=== PATIENT | male | born 1990 | race African-American/Black ===

== ENCOUNTER 2017-10-10 11:37 | Emergency (ER) | payer SELFPAY ==
[2017-10-10 12:02] LABS: BILIRUBIN,URINE NEGATIVE (NEG); CLARITY,URINE CLOUDY; COLOR,URINE AMBER; GLUCOSE,URINE NEGATIVE (NEG); NITRITE,URINE NEGATIVE (NEG); PROTEIN,URINE NEGATIVE (NEG-TRACE)
[2017-10-10 12:07] LABS: ADD MAN DIFF? NO
[2017-10-10 12:11] LABS: BASO % 1 % (0-3); EOS # 0.1 x10^3/uL (0.0-0.7); EOS % 4 % (0-3); HEMOGLOBIN 15.4 g/dL (13.0-17.5); LYMPH # 1.3 x10^3/uL (1.0-4.8); LYMPH % 38 % (24-48); MEAN CORPUSCULAR HEMOGLOBIN 30 pg (25-35); MEAN CORPUSCULAR HGB CONC 33 g/dL (31-37); MEAN CORPUSCULAR VOLUME 90 fL (79-100); MONO # 0.4 x10^3/uL (0.0-1.1); MONO % 10 % (0-9); NEUT # 1.7 x10^3uL (1.8-7.7); NEUT % 47 % (31-73); PLATELET COUNT 234 x10^3/uL (140-400); RED BLOOD COUNT 5.21 x10^6/uL (4.30-5.70); RED CELL DISTRIBUTION WIDTH 13.4 % (11.5-14.5); WHITE BLOOD COUNT 3.5 x10^3/uL (4.0-11.0)
[2017-10-10 12:14] LABS: AMORPHOUS SEDIMENT,UR PRESENT /HPF; BACTERIA,URINE 0 /HPF (0-FEW); RBC,URINE 0 /HPF (0-2); SQUAMOUS EPITHELIAL CELL,UR FEW /LPF; WBC,URINE 0 /HPF (0-4)
[2017-10-10 12:18] LABS: ANION GAP 6 (6-14); BLOOD UREA NITROGEN 6 mg/dL (8-26); BUN/CREATININE RATIO 7 (6-20); CALCIUM 9.6 mg/dL (8.5-10.1); CARBON DIOXIDE 32 mmol/L (21-32); CHLORIDE 101 mmol/L (98-107); CREATININE 0.9 mg/dL (0.7-1.3); GFR 121.6; GLUCOSE 84 mg/dL (70-99); POTASSIUM 4.1 mmol/L (3.5-5.1); SODIUM 139 mmol/L (136-145)
[2017-10-10] MEDS: KETOROLAC 30 MG/ML INJ. IV ×2 (12:21)
[2017-10-10] MEDS: ONDANSETRON PF 4 MG/2 ML VIAL. IV ×2 (12:21)
[2017-10-10 12:24] LABS: ALBUMIN 3.9 g/dL (3.4-5.0); ALBUMIN/GLOBULIN RATIO 1.1 (1.0-1.7); ALK PHOS 62 U/L (46-116); ALT (SGPT) 16 U/L (16-63); AST (SGOT) 16 U/L (15-37); TOTAL BILIRUBIN 1.3 mg/dL (0.2-1.0); TOTAL PROTEIN 7.3 g/dL (6.4-8.2)
[2017-10-10] MEDS: fentaNYL PF VIAL 100 MCG/2 ML VIAL IV ×2 (12:25)
[2017-10-10] MEDS: IV NORMAL SALINE 1000ML BAG 1,000 ML IV ×2 (12:26)
== END 2017-10-10 13:30 | disposition home or self-care (01) ==
LOC: ER 11:37
DX: R10.9 Unspecified abdominal pain (principal); R11.2 Nausea with vomiting, unspecified; F12.10 Cannabis abuse, uncomplicated
CPT/HCPCS: 36415; 74176; 80053; 81001; 85025; 96361; 96374; 96375; 99285-25; J1885; J2405; J3010; J7030

== ENCOUNTER 2018-01-09 00:22 | Emergency (ER) | payer SELFPAY ==
[2018-01-09] MEDS: IPRATRPIUM/ALBUTEROL 0.5/2.5MG 3 ML NEBU. NEB (00:45)
[2018-01-09] MEDS: predniSONE 20 MG TABLET PO (00:45)
== END 2018-01-09 01:47 | disposition home or self-care (01) ==
LOC: ER 00:22
DX: J45.41 Moderate persistent asthma with (acute) exacerbation (principal); Z87.891 Personal history of nicotine dependence
CPT/HCPCS: 94640; 99283-25; J7512; J7620

== ENCOUNTER 2018-01-25 02:10 | Inpatient (IN) | payer SELFPAY ==
[2018-01-25 02:48] LABS: ADD MAN DIFF? NO
[2018-01-25 02:53] LABS: BASO % 0 % (0-3); EOS % 0 % (0-3); HEMATOCRIT 44.1 % (39.0-53.0); HEMOGLOBIN 15.4 g/dL (13.0-17.5); LYMPH # 2.3 x10^3/uL (1.0-4.8); LYMPH % 23 % (24-48); MEAN CORPUSCULAR HEMOGLOBIN 32 pg (25-35); MEAN CORPUSCULAR HGB CONC 35 g/dL (31-37); MEAN CORPUSCULAR VOLUME 90 fL (79-100); MONO % 10 % (0-9); NEUT # 6.6 x10^3uL (1.8-7.7); NEUT % 66 % (31-73); PLATELET COUNT 229 x10^3/uL (140-400); RED BLOOD COUNT 4.88 x10^6/uL (4.30-5.70); RED CELL DISTRIBUTION WIDTH 12.6 % (11.5-14.5); WHITE BLOOD COUNT 9.9 x10^3/uL (4.0-11.0)
[2018-01-25] MEDS: LIDO:MAALOX 1:1 20 ML SINGLE DOSE. PO (02:55)
[2018-01-25 03:11] LABS: ANION GAP 9 (6-14); BLOOD UREA NITROGEN 34 mg/dL (8-26); CARBON DIOXIDE 31 mmol/L (21-32); CHLORIDE 97 mmol/L (98-107); CREATININE 1.1 mg/dL (0.7-1.3); GFR 96.4; GLUCOSE 131 mg/dL (70-99); POTASSIUM 3.3 mmol/L (3.5-5.1); SODIUM 137 mmol/L (136-145)
[2018-01-25 03:17] LABS: ALBUMIN 4.2 g/dL (3.4-5.0); ALK PHOS 56 U/L (46-116); ALT (SGPT) 33 U/L (16-63); AST (SGOT) 16 U/L (15-37); DIRECT BILIRUBIN 0.4 mg/dL (0.0-0.2); LIPASE 51 U/L (73-393); TOTAL PROTEIN 7.4 g/dL (6.4-8.2)
[2018-01-25 03:21] LABS: INR 1.2 (0.8-1.1); PARTIAL THROMBOPLASTIN TIME 27 SEC (24-38); PROTHROMBIN TIME PATIENT 14.6 SEC (11.7-14.0)
[2018-01-25] MEDS: ONDANSETRON PF 4 MG/2 ML VIAL. IV (03:35)
[2018-01-25] MEDS: IOHEXOL 300 MG/ML 100ML VIAL. IV (03:54)
[2018-01-25] MEDS: IV NORMAL SALINE 1000ML BAG 1,000 ML IV (03:57)
[2018-01-25] MEDS ORDERED: CONTRAST GIVEN. MC (04:00)
[2018-01-25] MEDS: PANTOPRAZOLE SODIUM IV DRIP 80 MG in IV NORMAL SALINE 100ML 100 ML IV ×2 (04:24→14:13)
[2018-01-25] MEDS: PANTOPRAZOLE IV PUSH 40 MG VIAL. IVP (04:24)
[2018-01-25] MEDS ORDERED: ONDANSETRON PF 4 MG/2 ML VIAL. IV (05:00)
[2018-01-25] MEDS ORDERED: MORPHINE SULFATE 4 MG/ML DISP.SYRIN. IV (05:00)
[2018-01-25] MEDS ORDERED: IV NORMAL SALINE 1000ML BAG 1,000 ML IV (05:00)
[2018-01-26] MEDS: PANTOPRAZOLE SODIUM IV DRIP 80 MG in IV NORMAL SALINE 100ML 100 ML IV ×3 (00:37→23:20)
[2018-01-26] MEDS: PROCHLORPERAZINE 10 MG/2 ML VIAL. IV (05:50)
[2018-01-26 07:11] LABS: ADD MAN DIFF? NO
[2018-01-26 07:14] LABS: BASO % 0 % (0-3); EOS % 0 % (0-3); HEMATOCRIT 30.8 % (39.0-53.0); HEMOGLOBIN 10.8 g/dL (13.0-17.5); LYMPH # 1.5 x10^3/uL (1.0-4.8); LYMPH % 16 % (24-48); MEAN CORPUSCULAR HEMOGLOBIN 32 pg (25-35); MEAN CORPUSCULAR HGB CONC 35 g/dL (31-37); MEAN CORPUSCULAR VOLUME 91 fL (79-100); MONO # 0.7 x10^3/uL (0.0-1.1); MONO % 8 % (0-9); NEUT % 76 % (31-73); PLATELET COUNT 175 x10^3/uL (140-400); RED BLOOD COUNT 3.39 x10^6/uL (4.30-5.70); RED CELL DISTRIBUTION WIDTH 12.7 % (11.5-14.5); WHITE BLOOD COUNT 9.3 x10^3/uL (4.0-11.0)
[2018-01-26 07:52] LABS: ALBUMIN 3.2 g/dL (3.4-5.0); ALBUMIN/GLOBULIN RATIO 1.2 (1.0-1.7); ALK PHOS 44 U/L (46-116); ALT (SGPT) 24 U/L (16-63); ANION GAP 7 (6-14); AST (SGOT) 11 U/L (15-37); BLOOD UREA NITROGEN 25 mg/dL (8-26); BUN/CREATININE RATIO 28 (6-20); CALCIUM 7.7 mg/dL (8.5-10.1); CARBON DIOXIDE 30 mmol/L (21-32); CHLORIDE 101 mmol/L (98-107); CREATININE 0.9 mg/dL (0.7-1.3); GFR 121.6; GLUCOSE 119 mg/dL (70-99); POTASSIUM 3.5 mmol/L (3.5-5.1); SODIUM 138 mmol/L (136-145); TOTAL BILIRUBIN 1.4 mg/dL (0.2-1.0); TOTAL PROTEIN 5.8 g/dL (6.4-8.2)
[2018-01-26] MEDS ORDERED: PANTOPRAZOLE 40 MG TABLET.DR. PO (11:00)
[2018-01-26 11:04] LABS: % SAT IRON 42 % (15-34); IRON,SERUM 102 ug/dL (65-175)
[2018-01-26] MEDS: ONDANSETRON PF 4 MG/2 ML VIAL. IV ×2 (12:47→15:50)
[2018-01-26] MEDS: IV RINGERS,LACTATED 1000ML 1,000 ML IV (12:55)
[2018-01-26] MEDS ORDERED: LIDOCAINE 2% PF Vial for OR 5 ML VIAL. (13:05)
[2018-01-26] MEDS ORDERED: PROPOFOL 20 ML IV (13:05)
[2018-01-26] MEDS: EPINEPHrine SYRINGE 1 MG/10 ML SYRINGE IV (13:15)
[2018-01-26] MEDS ORDERED: PROPOFOL 40 ML IV (13:24)
[2018-01-26] MEDS ORDERED: EPINEPHrine SYRINGE 1 MG/10 ML SYRINGE (14:21)
[2018-01-26 18:14] LABS: ADD MAN DIFF? NO
[2018-01-26 18:17] LABS: BASO % 0 % (0-3); EOS # 0.1 x10^3/uL (0.0-0.7); EOS % 1 % (0-3); HEMOGLOBIN 9.6 g/dL (13.0-17.5); LYMPH # 2.5 x10^3/uL (1.0-4.8); LYMPH % 27 % (24-48); MEAN CORPUSCULAR HEMOGLOBIN 29 pg (25-35); MEAN CORPUSCULAR HGB CONC 34 g/dL (31-37); MEAN CORPUSCULAR VOLUME 86 fL (79-100); MONO # 0.6 x10^3/uL (0.0-1.1); MONO % 7 % (0-9); NEUT % 65 % (31-73); PLATELET COUNT 140 x10^3/uL (140-400); RED BLOOD COUNT 3.27 x10^6/uL (4.30-5.70); RED CELL DISTRIBUTION WIDTH 17.2 % (11.5-14.5); WHITE BLOOD COUNT 9.2 x10^3/uL (4.0-11.0)
[2018-01-27] MEDS: IV RINGERS,LACTATED 1000ML 1,000 ML IV ×3 (01:20→23:42)
[2018-01-27 06:16] LABS: HEMATOCRIT 22.8 % (39.0-53.0); HEMOGLOBIN 8.1 g/dL (13.0-17.5); MEAN CORPUSCULAR HEMOGLOBIN 33 pg (25-35); MEAN CORPUSCULAR HGB CONC 36 g/dL (31-37); MEAN CORPUSCULAR VOLUME 92 fL (79-100); PLATELET COUNT 146 x10^3/uL (140-400); RED BLOOD COUNT 2.48 x10^6/uL (4.30-5.70); RED CELL DISTRIBUTION WIDTH 12.8 % (11.5-14.5)
[2018-01-27 06:31] LABS: ANION GAP 5 (6-14); BLOOD UREA NITROGEN 14 mg/dL (8-26); CALCIUM 8.5 mg/dL (8.5-10.1); CARBON DIOXIDE 29 mmol/L (21-32); CHLORIDE 102 mmol/L (98-107); GFR 107.7; GLUCOSE 89 mg/dL (70-99); POTASSIUM 3.8 mmol/L (3.5-5.1); SODIUM 136 mmol/L (136-145)
[2018-01-27] MEDS: PANTOPRAZOLE SODIUM IV DRIP 80 MG in IV NORMAL SALINE 100ML 100 ML IV ×2 (11:27→22:04)
[2018-01-27 15:32] LABS: MRSA BY PCR Negative (Negative)
[2018-01-27 21:10] LABS: HEMATOCRIT 21.1 % (39.0-53.0); HEMOGLOBIN 7.2 g/dL (13.0-17.5); MEAN CORPUSCULAR HEMOGLOBIN 31 pg (25-35); MEAN CORPUSCULAR HGB CONC 34 g/dL (31-37); MEAN CORPUSCULAR VOLUME 91 fL (79-100); PLATELET COUNT 167 x10^3/uL (140-400); RED BLOOD COUNT 2.31 x10^6/uL (4.30-5.70); RED CELL DISTRIBUTION WIDTH 12.6 % (11.5-14.5); WHITE BLOOD COUNT 5.4 x10^3/uL (4.0-11.0)
[2018-01-28] MEDS: PANTOPRAZOLE SODIUM IV DRIP 80 MG in IV NORMAL SALINE 100ML 100 ML IV (09:10)
[2018-01-28 09:12] LABS: HEMOGLOBIN 7.1 g/dL (13.0-17.5); MEAN CORPUSCULAR HEMOGLOBIN 32 pg (25-35); MEAN CORPUSCULAR HGB CONC 35 g/dL (31-37); MEAN CORPUSCULAR VOLUME 91 fL (79-100); PLATELET COUNT 169 x10^3/uL (140-400); RED BLOOD COUNT 2.26 x10^6/uL (4.30-5.70); RED CELL DISTRIBUTION WIDTH 12.7 % (11.5-14.5); WHITE BLOOD COUNT 3.6 x10^3/uL (4.0-11.0)
[2018-01-28 09:17] LABS: HEMATOCRIT 20.7 % (39.0-53.0)
[2018-01-28] MEDS: PANTOPRAZOLE 40 MG TABLET.DR. PO (18:28)
[2018-01-28 21:09] LABS: HEMOGLOBIN 7.9 g/dL (13.0-17.5); MEAN CORPUSCULAR HEMOGLOBIN 33 pg (25-35); MEAN CORPUSCULAR HGB CONC 36 g/dL (31-37); MEAN CORPUSCULAR VOLUME 92 fL (79-100); PLATELET COUNT 214 x10^3/uL (140-400); RED BLOOD COUNT 2.41 x10^6/uL (4.30-5.70); RED CELL DISTRIBUTION WIDTH 12.8 % (11.5-14.5); WHITE BLOOD COUNT 5.3 x10^3/uL (4.0-11.0)
[2018-01-29 03:27] LABS: ADD MAN DIFF? NO
[2018-01-29 03:37] LABS: BASO % 0 % (0-3); EOS # 0.1 x10^3/uL (0.0-0.7); EOS % 3 % (0-3); LYMPH # 1.4 x10^3/uL (1.0-4.8); LYMPH % 36 % (24-48); MEAN CORPUSCULAR HEMOGLOBIN 33 pg (25-35); MEAN CORPUSCULAR HGB CONC 35 g/dL (31-37); MEAN CORPUSCULAR VOLUME 92 fL (79-100); MONO # 0.4 x10^3/uL (0.0-1.1); MONO % 11 % (0-9); NEUT % 50 % (31-73); PLATELET COUNT 185 x10^3/uL (140-400); RED BLOOD COUNT 2.12 x10^6/uL (4.30-5.70); RED CELL DISTRIBUTION WIDTH 12.9 % (11.5-14.5); WHITE BLOOD COUNT 3.9 x10^3/uL (4.0-11.0)
[2018-01-29 03:56] LABS: ALBUMIN/GLOBULIN RATIO 1.4 (1.0-1.7); ALK PHOS 34 U/L (46-116); ALT (SGPT) 24 U/L (16-63); ANION GAP 7 (6-14); AST (SGOT) 18 U/L (15-37); BLOOD UREA NITROGEN 8 mg/dL (8-26); BUN/CREATININE RATIO 9 (6-20); CALCIUM 8.5 mg/dL (8.5-10.1); CARBON DIOXIDE 28 mmol/L (21-32); CHLORIDE 103 mmol/L (98-107); CREATININE 0.9 mg/dL (0.7-1.3); GFR 121.6; GLUCOSE 90 mg/dL (70-99); POTASSIUM 3.8 mmol/L (3.5-5.1); SODIUM 138 mmol/L (136-145); TOTAL BILIRUBIN 0.7 mg/dL (0.2-1.0); TOTAL PROTEIN 5.1 g/dL (6.4-8.2)
[2018-01-29 04:25] LABS: HEMATOCRIT 19.5 % (39.0-53.0); HEMOGLOBIN 6.9 g/dL (13.0-17.5)
[2018-01-29] MEDS: PANTOPRAZOLE 40 MG TABLET.DR. PO ×2 (09:47→16:32)
[2018-01-29] MEDS ORDERED: ONDANSETRON PF 4 MG/2 ML VIAL. IV (12:30)
[2018-01-29] MEDS ORDERED: traMADol 50 MG TABLET PO (12:30)
[2018-01-29] MEDS ORDERED: MORPHINE SULFATE 2 MG/ML DISP.SYRIN. IV (12:30)
[2018-01-29] MEDS ORDERED: DOCUSATE SODIUM 100 MG CAPSULE. PO (12:30)
[2018-01-29] MEDS ORDERED: hydrALAZINE 20 MG/ML VIAL. IVP (12:30)
[2018-01-29] MEDS ORDERED: ACETAMINOPHEN 325 MG TABLET. PO (12:30)
[2018-01-30 06:17] LABS: ADD MAN DIFF? NO
[2018-01-30 06:33] LABS: BASO % 1 % (0-3); EOS # 0.1 x10^3/uL (0.0-0.7); EOS % 3 % (0-3); HEMOGLOBIN 7.3 g/dL (13.0-17.5); LYMPH % 31 % (24-48); MEAN CORPUSCULAR HEMOGLOBIN 32 pg (25-35); MEAN CORPUSCULAR HGB CONC 35 g/dL (31-37); MEAN CORPUSCULAR VOLUME 92 fL (79-100); MONO # 0.3 x10^3/uL (0.0-1.1); MONO % 10 % (0-9); NEUT # 1.8 x10^3uL (1.8-7.7); NEUT % 55 % (31-73); PLATELET COUNT 249 x10^3/uL (140-400); RED BLOOD COUNT 2.27 x10^6/uL (4.30-5.70); RED CELL DISTRIBUTION WIDTH 13.6 % (11.5-14.5); WHITE BLOOD COUNT 3.3 x10^3/uL (4.0-11.0)
[2018-01-30 06:37] LABS: ANION GAP 4 (6-14); BLOOD UREA NITROGEN 6 mg/dL (8-26); CALCIUM 8.6 mg/dL (8.5-10.1); CARBON DIOXIDE 30 mmol/L (21-32); CHLORIDE 105 mmol/L (98-107); GFR 107.7; GLUCOSE 92 mg/dL (70-99); POTASSIUM 3.8 mmol/L (3.5-5.1); SODIUM 139 mmol/L (136-145)
[2018-01-30 06:45] LABS: HEMATOCRIT 20.9 % (39.0-53.0)
[2018-01-30] MEDS: PANTOPRAZOLE 40 MG TABLET.DR. PO (09:32)
[2018-01-30] MEDS: FERROUS SULFATE 325 MG TABLET. PO (13:41)
== END 2018-01-30 14:26 | disposition home or self-care (01) | DRG 378 ==
LOC: 6 SOUTH 01-28 16:50 → 1 WEST ICU 01-26 16:26 → ER 02:10 → 2 SOUTH 04:00
PROC: 0W3P8ZZ Control Bleeding in Gastrointestinal Tract, Via Natural or Artificial Opening Endoscopic (ICD-10-PCS; principal; 2018-01-26 13:09)
DX: K26.4 Chronic or unspecified duodenal ulcer with hemorrhage (principal); R17 Unspecified jaundice; D62 Acute posthemorrhagic anemia; J45.901 Unspecified asthma with (acute) exacerbation; E87.6 Hypokalemia; K21.0 Gastro-esophageal reflux disease with esophagitis; Z81.8 Family history of other mental and behavioral disorders; Z82.0 Family history of epilepsy and other diseases of the nervous system; Z82.49 Family history of ischemic heart disease and other diseases of the circulatory system; Z82.5 Family history of asthma and other chronic lower respiratory diseases; Z83.2 Family history of diseases of the blood and blood-forming organs and certain disorders involving the immune mechanism; Z83.3 Family history of diabetes mellitus
CPT/HCPCS: 36415; 74177; 76700; 80048; 80053; 80076; 83540; 83550; 83690; 85025; 85027; 85610; 85730; 86850; 86900; 86901; 87641; 96361; 96374; 96375; 99285; 99285-25; C9113; J0171; J0780; J2405; J2704; J7030; J7120; Q9967

== ENCOUNTER 2018-07-01 13:20 | Emergency (ER) | payer SELFPAY ==
[~2018-07-01] VITALS: Ht 190.5 cm; Wt 77.1 kg
[~2018-07-01 13:20] MED LIST: FERR325T72 PO; HYDR-971 PO; ONDA4TAB10 PO; PRED20TA PO; PROVENTIL HFA6.7 GM IH; Pantoprazole PO
[2018-07-01 13:35] VITALS: BP 166/92
--- NOTE | 2018-07-01 13:41 | PHYS DOC ---
Past Medical History Past Medical History: Asthma Past Surgical History: No Surgical History Alcohol Use: Occasionally Drug Use: None Adult General Chief Complaint Chief Complaint: ASTHMA HPI HPI Patient is a 28 year old AA male who presents to the ER with complaints of a dry cough, shortness of breath, and painful coughing for the last 4 days. Pt denies any fever, sore throat, or ear pain. States that he has been using his inhaler at home with little relief of his symptoms. He denies any nausea, vomiting, or diarrhea. Review of Systems Review of Systems Constitutional: Denies fever or chills [] Eyes: Denies change in visual acuity, redness, or eye pain [] HENT: Denies ear pain or sore throat, reports nasal congestion Respiratory: reports wheezing, dry cough, and shortness of breath [] Cardiovascular: No additional information not addressed in HPI [] GI: Denies abdominal pain, nausea, vomiting, or diarrhea [] Musculoskeletal: Denies back pain or joint pain [] Integument: Denies rash or skin lesions [] Neurologic: Denies focal weakness or sensory changes, reports LOPEZ with cough [] All other systems were reviewed and found to be within normal limits, except as documented in this note. Current Medications Current Medications Current Medications Medications (Trade) Dose Ordered Sig/Alberta Start Time Stop Time Status Last Admin Dose Admin Albuterol Sulfate (Ventolin Neb Soln) 2.5 mg 1X ONCE 07/01/18 13:45 07/01/18 13:46 DC 07/01/18 13:46 2.5 MG Albuterol/ Ipratropium (Duoneb) 3 ml 1X ONCE 07/01/18 14:00 07/01/18 14:01 DC 07/01/18 14:04 3 ML Benzonatate (Tessalon Perle) 100 mg 1X ONCE 07/01/18 13:45 07/01/18 13:50 DC 07/01/18 14:04 100 MG Dexamethasone Sodium Phosphate (Decadron) 10 mg 1X ONCE 07/01/18 13:45 07/01/18 13:50 DC 07/01/18 14:04 10 MG Allergies Allergies Allergies Coded Allergies Type Severity Reaction Last Updated Verified No Known Drug Allergies 01/26/18 No Physical Exam Physical Exam Constitutional: Well developed, well nourished, no acute distress, non-toxic appearance. [] HENT: Normocephalic, atraumatic, bilateral external ears normal, bilateral TMs normal, oropharynx moist, no oral exudates, nose normal. [] Eyes: PERRLA, conjunctiva normal, no discharge. [] Neck: Normal range of motion, no tenderness, supple, no stridor. [] Cardiovascular:Heart rate regular rhythm, no murmur [] Lungs & Thorax: Bilateral breath sounds rhonchi and expiratory wheezes to auscultation in all grissom, diminished in bases bilat Skin: Warm, dry, no erythema, no rash. [] Extremities: no cyanosis, no clubbing, ROM intact, no edema. [] Neurologic: Alert and oriented X 3, normal motor function, normal sensory function, no focal deficits noted. [] Psychologic: Affect normal, judgement normal, mood normal. [] Current Patient Data Vital Signs Vital Signs Date Time Temp Pulse Resp B/P (MAP) Pulse Ox O2 Delivery O2 Flow Rate FiO2 07/01/18 14:04 Room Air 07/01/18 13:51 98 07/01/18 13:35 98.2 110 20 166/92 (116) 98.2 EKG EKG [] Radiology/Procedures Radiology/Procedures PROCEDURE: CHEST PA & LATERAL Chest, PA and Lateral: Technique: PA and lateral views of the chest were obtained. History: Cough, congestion, wheezing. Comparison: 07/06/2006. Findings: The heart and pulmonary vasculature appear within normal limits. The lungs are clear. The pleural margins are clear. Impression: No acute chest process is seen. 1445- Lung sounds clear after breathing treatments and medications. Pt reports feeling better. Course & Med Decision Making Course & Med Decision Making Pertinent Labs and Imaging studies reviewed. (See chart for details) Dx: Asthma exacerbation, bronchitis with wheezing Rx for albuterol MDI, and tessalon perrles. Pt refused prescription for prednisone, stating that his stomach ulcers bleed when he takes it. Recommend a Cool mist humidifier in room at bedtime. Tylenol or ibuprofen prn pain/fever. Increase clear fluids. Avoid triggers such as smoke, fragrance, dust, and pollen. Follow-up with your primary care doctor in 1-2 days. Patient verbalized an understanding of home care, medications, follow-up, and return to ED instructions and was in agreement with the plan of care. [] Dragon Disclaimer Dragon Disclaimer This electronic medical record was generated, in whole or in part, using a voice recognition dictation system. Departure Departure Impression: Primary Impression: Asthma with acute exacerbation Additional Impression: Bronchitis with asthma, acute Disposition: 01 HOME, SELF-CARE Condition: STABLE Referrals: NO PCP (PCP) Patient Instructions: Acute Bronchitis, [id number], Asthma, Adult, Easy-to- Read Additional Instructions: STOP SMOKING. Fill prescriptions and use as directed. Recommend a Cool mist humidifier in room at bedtime. Tylenol or ibuprofen prn pain/fever. Increase clear fluids. Avoid triggers such as smoke, fragrance, dust, and pollen. Follow- up with your primary care doctor in 1-2 days. Scripts Albuterol Sulfate (PROAIR HFA INHALER) 8.5 Gm Hfa.aer.ad 1-2 PUFF INH PRN Q4-6HRS PRN for SHORTNESS OF BREATH for 10 Days, #1 INHALER 1 Refill Prov: JACQUELYN IGNACIO [employer] TECH 07/01/18 Benzonatate (TESSALON PERLE) 100 Mg Capsule 100 MG PO TID PRN for COUGH for 7 Days, #21 CAP 0 Refills Prov: JACQUELYN IGNACIO [employer] TECH 07/01/18 Problem Qualifiers Primary Impression: Asthma with acute exacerbation Asthma severity: moderate Asthma persistence: unspecified Qualified Codes: J45.901 - Unspecified asthma with (acute) exacerbation JACQUELYN IGNACIO [employer] TECH Jul 01, 2018 13:41
[2018-07-01] MEDS ORDERED: ALBUTEROL SULFATE 2.5 MG/3 ML NEBU. NEB ONE (13:45)
[2018-07-01] MEDS ORDERED: BENZONATATE 100 MG CAPSULE. PO ONE (13:45)
[2018-07-01] MEDS ORDERED: DEXAMETHASONE SOD PHOS 20 MG/5 ML VIAL. IM ONE (13:45)
[2018-07-01] MEDS ORDERED: IPRATRPIUM/ALBUTEROL 0.5/2.5MG 3 ML NEBU. NEB ONE (14:00)
--- NOTE | 2018-07-01 14:45 | RAD ---
Chest, PA and Lateral: Technique: PA and lateral views of the chest were obtained. History: Cough, congestion, wheezing. Comparison: 07/06/2006. Findings: The heart and pulmonary vasculature appear within normal limits. The lungs are clear. The pleural margins are clear. Impression: No acute chest process is seen. Electronically signed by: Rai Huang MD (07/01/2018 2:42 PM) [facility]
[2018-07-01] MEDS ORDERED: BENZ100C PO (14:55)
[2018-07-01] MEDS ORDERED: PROAIR HFA8.5 GM INH (14:55)
== END 2018-07-01 15:04 | disposition home or self-care (01) ==
LOC: ER 13:20
DX: J45.901 Unspecified asthma with (acute) exacerbation (principal)
CPT/HCPCS: 71046; 94640; 96372; 99284; J1100; J7613; J7620; 99285-25

== ENCOUNTER 2018-11-22 10:09 | Inpatient (IN) | payer OTHER ==
[~2018-11-22] VITALS: Ht 190.5 cm; Wt 84.4 kg
[~2018-11-22 10:09] MED LIST changes: +ALBU2.5V8 IH; +ALBU2.5V8 INH; +BENZ100C PO; +HYDR-3164 PO; -HYDR-971 PO; -PROVENTIL HFA6.7 GM IH
[2018-11-22] MEDS ORDERED: IV NORMAL SALINE 1000ML BAG 1,000 ML IV SCH (10:37)
--- NOTE | 2018-11-22 10:42 | PHYS DOC ---
Past Medical History Past Medical History: Asthma Past Surgical History: No Surgical History Alcohol Use: Occasionally Drug Use: None Adult General Chief Complaint Chief Complaint: GI PROBLEM HPI HPI Patient is a 28-year-old male who presents to the emergency department for evaluation. He states that this morning, he had 3 episodes of emesis, which looked like black/coffee ground type emesis and tasted like blood. His history is significant for an bleeding duodenal ulcer, which was treated at the hospital here this past January. Records have been reviewed, and it appears that the patient had hemoglobin that dropped down to 7. He does admit to drinking some alcohol her birthday alliance party yesterday but does not drink to excess. He was supposed be taking history of present illness after his prior episode, but states that after he left the hospital and finished the prescription he was given at discharge he never followed up and has not been on a medication on a regular basis. He does report some generalized abdominal pain. There are no alleviating, or exacerbating factors to his symptoms otherwise. Patient states he has felt somewhat dizzy and short of breath today. Review of Systems Review of Systems Constitutional: Denies fever or chills [] Eyes: Denies change in visual acuity, redness, or eye pain [] HENT: Denies nasal congestion or sore throat [] Respiratory: Denies cough and does admit to feeling somewhat short of breath [] Cardiovascular: The patient denies any chest pain, palpitations, or orthopnea[] GI: Denies black or bloody stools or diarrhea [] : Denies dysuria or hematuria [] Musculoskeletal: Denies back pain or joint pain [] Integument: Denies rash or skin lesions [] Neurologic: Denies headache, focal weakness or sensory changes [] Endocrine: Denies polyuria or polydipsia [] All other systems were reviewed and found to be within normal limits, except as documented in this note. Current Medications Current Medications Current Medications Medications (Trade) Dose Ordered Sig/Alberta Start Time Stop Time Status Last Admin Dose Admin Pantoprazole Sodium (PROTONIX VIAL for IV PUSH) 80 mg 1X ONCE 11/22/18 10:45 11/22/18 10:46 DC 11/22/18 11:27 80 MG Pantoprazole Sodium 80 mg/ Sodium Chloride 100 ml @ 10 mls/hr Q10H 11/22/18 11:00 11/22/18 11:35 10 MLS/HR Sodium Chloride 1,000 ml @ 1,000 mls/hr Q1H 11/22/18 10:37 11/22/18 11:36 DC Allergies Allergies Allergies Coded Allergies Type Severity Reaction Last Updated Verified No Known Drug Allergies 01/26/18 No Physical Exam Physical Exam PHYSICAL EXAM: CONSTITUTIONAL: Well developed, well nourished HEAD: normocephalic, atraumatic EENT: PERRL, EOMI. Conjunctivae normal color, sclerae non-icteric; moist mucous membranes. NECK: Supple, non-tender; no meningismus. LUNGS: Lungs CTA, breathing even and unlabored. Normal air movement. HEART: Regular rate and rhythm, no murmur CHEST: No deformity; non-tender ABDOMEN: The abdomen is soft, and non-tender, no masses or bruits. EXTREM: Normal ROM; no deformity, no calf tenderness. Normal pulses palpable in all extremities. There is no pedal edema. SKIN: No rash; no diaphoresis NEURO: Alert; normal speech and cognition; CN's grossly intact; strength grossly intact without focal deficit. BACK: No CVA TTP. RECTAL EXAM: There is a small amount of brownish rectal mucus, Hemoccult specimen obtained. Current Patient Data Vital Signs Vital Signs Date Time Temp Pulse Resp B/P (MAP) Pulse Ox O2 Delivery O2 Flow Rate FiO2 11/22/18 10:45 98.6 74 16 157/84 (108) 99 Room Air 98.6 Lab Values Laboratory Tests Test 11/22/18 10:35 11/22/18 11:00 Stool Occult Blood Negative (NEG) White Blood Count 4.8 x10^3/uL (4.0-11.0) Red Blood Count 5.52 x10^6/uL (4.30-5.70) Hemoglobin 16.6 g/dL (13.0-17.5) Hematocrit 48.9 % (39.0-53.0) Mean Corpuscular Volume 89 fL (79-100) Mean Corpuscular Hemoglobin 30 pg (25-35) Mean Corpuscular Hemoglobin Concent 34 g/dL (31-37) Red Cell Distribution Width 12.8 % (11.5-14.5) Platelet Count 212 x10^3/uL (140-400) Neutrophils (%) (Auto) 67 % (31-73) Lymphocytes (%) (Auto) 25 % (24-48) Monocytes (%) (Auto) 7 % (0-9) Eosinophils (%) (Auto) 1 % (0-3) Basophils (%) (Auto) 1 % (0-3) Neutrophils # (Auto) 3.2 x10^3uL (1.8-7.7) Lymphocytes # (Auto) 1.2 x10^3/uL (1.0-4.8) Monocytes # (Auto) 0.3 x10^3/uL (0.0-1.1) Eosinophils # (Auto) 0.0 x10^3/uL (0.0-0.7) Basophils # (Auto) 0.0 x10^3/uL (0.0-0.2) Prothrombin Time 13.7 SEC (11.7-14.0) Prothrombin Time INR 1.1 (0.8-1.1) PTT 30 SEC (24-38) Sodium Level 141 mmol/L (136-145) Potassium Level 4.3 mmol/L (3.5-5.1) Chloride Level 102 mmol/L (98-107) Carbon Dioxide Level 26 mmol/L (21-32) Anion Gap 13 (6-14) Blood Urea Nitrogen 7 mg/dL (8-26) L Creatinine 0.9 mg/dL (0.7-1.3) Estimated GFR (Cockcroft-Gault) 120.7 BUN/Creatinine Ratio 8 (6-20) Glucose Level 104 mg/dL (70-99) H Calcium Level 9.4 mg/dL (8.5-10.1) Total Bilirubin 1.1 mg/dL (0.2-1.0) H Aspartate Amino Transferase (AST) 21 U/L (15-37) Alanine Aminotransferase (ALT) 21 U/L (16-63) Alkaline Phosphatase 72 U/L (46-116) Total Protein 8.0 g/dL (6.4-8.2) Albumin 4.4 g/dL (3.4-5.0) Albumin/Globulin Ratio 1.2 (1.0-1.7) Lipase 109 U/L (73-393) Laboratory Tests 11/22/18 11:00 Laboratory Tests 11/22/18 11:00 EKG EKG [] Radiology/Procedures Radiology/Procedures [] Course & Med Decision Making Course & Med Decision Making Pertinent Lab studies reviewed. (See chart for details) [12:05 PM: The patient's condition remains stable. Although his hemoglobin is normal and stool occult blood negative at this time, an early upper GI bleed is not excluded, given the patient's history of a similar presentation with normal hemoglobin, with resultant significant hemoglobin drop a few months ago, observation is warranted. Hospitalist has accepted the patient for further evaluation.] Dragon Disclaimer Dragon Disclaimer This electronic medical record was generated, in whole or in part, using a voice recognition dictation system. Departure Departure Impression: Primary Impression: Upper GI bleed Disposition: ADMITTED INPATIENT Admitting Physician: Tina Chung Condition: STABLE Referrals: NO PCP (PCP) ELOY AYON MD Nov 22, 2018 10:42
[2018-11-22] MEDS ORDERED: PANTOPRAZOLE IV PUSH 40 MG VIAL. IVP ONE (10:45)
[2018-11-22 11:19] LABS: FECAL OB PT NEGATIVE (NEG)
[2018-11-22 11:26] LABS: CALCIUM 9.4 mg/dL (8.5-10.1); CREATININE 0.9 mg/dL (0.7-1.3); GFR 120.7; POTASSIUM 4.3 mmol/L (3.5-5.1)
[2018-11-22 11:27] LABS: BASO % 1 % (0-3); EOS % 1 % (0-3); HEMATOCRIT 48.9 % (39.0-53.0); HEMOGLOBIN 16.6 g/dL (13.0-17.5); LYMPH # 1.2 x10^3/uL (1.0-4.8); LYMPH % 25 % (24-48); MEAN CORPUSCULAR HEMOGLOBIN 30 pg (25-35); MEAN CORPUSCULAR HGB CONC 34 g/dL (31-37); MEAN CORPUSCULAR VOLUME 89 fL (79-100); MONO # 0.3 x10^3/uL (0.0-1.1); MONO % 7 % (0-9); NEUT # 3.2 x10^3uL (1.8-7.7); NEUT % 67 % (31-73); PLATELET COUNT 212 x10^3/uL (140-400); RED BLOOD COUNT 5.52 x10^6/uL (4.30-5.70); RED CELL DISTRIBUTION WIDTH 12.8 % (11.5-14.5); WHITE BLOOD COUNT 4.8 x10^3/uL (4.0-11.0)
[2018-11-22 11:33] LABS: ALBUMIN 4.4 g/dL (3.4-5.0); ALBUMIN/GLOBULIN RATIO 1.2 (1.0-1.7); TOTAL BILIRUBIN 1.1 mg/dL (0.2-1.0)
[2018-11-22] MEDS: PANTOPRAZOLE SODIUM IV DRIP 80 MG in IV NORMAL SALINE 100ML 100 ML IV SCH ×2 (11:35→21:09)
[2018-11-22 11:43] LABS: PROTHROMBIN TIME PATIENT 13.7 SEC (11.7-14.0)
[2018-11-22] MEDS ORDERED: IV DEXTROSE 5%-LACT RINGERS 1,000 ML IV ONE (12:15)
[2018-11-22] MEDS ORDERED: ONDANSETRON PF 4 MG/2 ML VIAL. IV PRN ×2 (12:15→12:30)
[2018-11-22] MEDS ORDERED: MORPHINE SULFATE 4 MG/ML VIAL. IV PRN (12:15)
[2018-11-22] MEDS ORDERED: LABETALOL 20 MG/4 ML DISP.SYRIN. IVP PRN (12:30)
[2018-11-22 13:15] VITALS: BP 144/95
--- NOTE | 2018-11-22 13:33 | PDOC2 ---
GI CONSULT Reason For Consult: "Hematemesis" HPI: HPI: 28 y/o male presented to ER with c/o's vomiting blood. He describes "red dots in clear/foamy liquid" and flatly states not similar to what he vomited when we last saw him January 2018 for bleeding DU. Did have a bit too much to drink last evening; not a chronic heavy drinker. Not on any antisecretory at home currently. At his EGD last year, minor amount of reflux changes, though denies heartburn or dysphagia. No GB, liver or pancreatic history. No tobacco use. Denies diarrhea, constipation, hematochezia or melena. Stool heme negative in ER. No GIFH of note. No prior colonoscopy. PMH: PMH: Asthma. No prior surgery. Social History: ALCOHOL: occassional Drugs: None ROS: GEN: Denies fevers, chills, sweats HEENT: Denies blurred vision, sore throat CV: Denies chest pain RESP: Denies shortness of air, cough GI: Per HPI : Denies hematuria, dysuria ENDO: Denies weight changes NEURO: Denies confusion, dizziness MSK: Denies weakness, joint pain/swelling SKIN: Denies jaundice, pruritus Vitals: Vitals: Vital Signs Date Time Temp Pulse Resp B/P (MAP) Pulse Ox O2 Delivery O2 Flow Rate FiO2 11/22/18 10:45 98.6 74 16 157/84 (108) 99 Room Air 98.6 Labs: Labs: Laboratory Tests Test 11/22/18 10:35 11/22/18 11:00 Stool Occult Blood Negative (NEG) White Blood Count 4.8 x10^3/uL (4.0-11.0) Red Blood Count 5.52 x10^6/uL (4.30-5.70) Hemoglobin 16.6 g/dL (13.0-17.5) Hematocrit 48.9 % (39.0-53.0) Mean Corpuscular Volume 89 fL (79-100) Mean Corpuscular Hemoglobin 30 pg (25-35) Mean Corpuscular Hemoglobin Concent 34 g/dL (31-37) Red Cell Distribution Width 12.8 % (11.5-14.5) Platelet Count 212 x10^3/uL (140-400) Neutrophils (%) (Auto) 67 % (31-73) Lymphocytes (%) (Auto) 25 % (24-48) Monocytes (%) (Auto) 7 % (0-9) Eosinophils (%) (Auto) 1 % (0-3) Basophils (%) (Auto) 1 % (0-3) Neutrophils # (Auto) 3.2 x10^3uL (1.8-7.7) Lymphocytes # (Auto) 1.2 x10^3/uL (1.0-4.8) Monocytes # (Auto) 0.3 x10^3/uL (0.0-1.1) Eosinophils # (Auto) 0.0 x10^3/uL (0.0-0.7) Basophils # (Auto) 0.0 x10^3/uL (0.0-0.2) Prothrombin Time 13.7 SEC (11.7-14.0) Prothromb Time International Ratio 1.1 (0.8-1.1) Activated Partial Thromboplast Time 30 SEC (24-38) Sodium Level 141 mmol/L (136-145) Potassium Level 4.3 mmol/L (3.5-5.1) Chloride Level 102 mmol/L (98-107) Carbon Dioxide Level 26 mmol/L (21-32) Anion Gap 13 (6-14) Blood Urea Nitrogen 7 mg/dL (8-26) Creatinine 0.9 mg/dL (0.7-1.3) Estimated GFR (Cockcroft-Gault) 120.7 BUN/Creatinine Ratio 8 (6-20) Glucose Level 104 mg/dL (70-99) Calcium Level 9.4 mg/dL (8.5-10.1) Total Bilirubin 1.1 mg/dL (0.2-1.0) Aspartate Amino Transf (AST/SGOT) 21 U/L (15-37) Alanine Aminotransferase (ALT/SGPT) 21 U/L (16-63) Alkaline Phosphatase 72 U/L (46-116) Total Protein 8.0 g/dL (6.4-8.2) Albumin 4.4 g/dL (3.4-5.0) Albumin/Globulin Ratio 1.2 (1.0-1.7) Lipase 109 U/L (73-393) Normal/elevated hemoglobin, normal/subnormal BUN. Allergies: Coded Allergies: No Known Drug Allergies (Unverified , 01/26/18) Medications: Current Medications Medications (Trade) Dose Ordered Sig/Alberta Route PRN Reason Start Time Stop Time Status Last Admin Dose Admin Pantoprazole Sodium (PROTONIX VIAL for IV PUSH) 80 mg 1X ONCE IVP 11/22/18 10:45 11/22/18 10:46 DC 11/22/18 11:27 Pantoprazole Sodium 80 mg/ Sodium Chloride 100 ml @ 10 mls/hr Q10H IV 11/22/18 11:00 11/22/18 11:35 PE: GEN: NAD HEENT: Atraumatic, PERRLA LUNGS: CTAB HEART: RRR, no murmurs ABD: NABS, S/ND/NT, no masses EXTREMITY: No edema SKIN: No rashes, no jaundice NEURO/PSYCH: A & O 3 A/P: A/P: IMP: Hematemesis. Historically this seems trivial; he agrees not what he saw last summer. Normal hemoglobin and low BUN not consistent with meaningful UGI bleeding. History of DU with bleeding. We don't know H.pylori status. Not biopsied last summer as blood in stomach toxic to the bacteria and may not be seen. REC: Observe on PPI and ice chips only overnight. AM hemoglobin. If can order, H.pylori testing. If remains stable, could likely go home tomorrow. Thank you for allowing me to assist in the care of this patient. Please call if questions. KRISTEN OLVERA MD Nov 22, 2018 13:33
--- NOTE | 2018-11-22 14:00 | NUR ---
Pt arrived on the unit at 1315 from Ed by rehana. Pt did not complain of any pain. He has had a previous GI bleed before and was told to come to the ER if anything happed to keep an eye on him. Last night he indulged in some hot sauce and had some alcohol to drink. This morning he vomited twice and had bright spots of red blood. VSS. Oriented to call light, restroom, and fall policy. MD was consulted. Will continue to monitor.
[2018-11-22 15:00] VITALS: BP 121/71
--- NOTE | 2018-11-22 17:48 | PDOC1 ---
History and Physical Date of Admission Date of Admission DATE: 11/22/18 TIME: 17:44 Identification/Chief Complaint Chief Complaint vomited small amt of blood today Source Source: Caregiver, Chart review, Patient History of Present Illness History of Present Illness 28 AA male, hx small duodenal ulcer January 2018 via EGD, off PPI and meds for PUD , comes in bec of small amt vomiting today, DRank some etoh yesterday but not heavy drinker, non smoker, Hgb stable VS stable, Heme occult neg, Seen by GI, peter vazquez today,. If hgb ok then home tomorrow, Started on PPI gtt at ER, NO melena, hematochezia or abd pain. Past Medical History Pulmonary: Asthma Hepatobiliary: Other (PUD) Past Surgical History Past Surgical History: No pertinent history Family History Family History: No Significant Social History Smoke: No ALCOHOL: occassional Drugs: None Current Problem List Problem List Problems Medical Problems: (1) Upper GI bleed Status: Acute Current Medications Current Medications Current Medications Sodium Chloride 1,000 ml @ 1,000 mls/hr Q1H IV ; Start 11/22/18 at 10:37; Stop 11/22/18 at 11:36; Status DC Pantoprazole Sodium (PROTONIX VIAL for IV PUSH) 80 mg 1X ONCE IVP Last administered on 11/22/18at 11:27; Start 11/22/18 at 10:45; Stop 11/22/18 at 10:46 ; Status DC Pantoprazole Sodium 80 mg/ Sodium Chloride 100 ml @ 10 mls/hr Q10H IV Last administered on 11/22/18at 11:35; Start 11/22/18 at 11:00 Ondansetron HCl (Zofran) 4 mg PRN Q8HRS PRN IV NAUSEA/VOMITING; Start 11/22/18 at 12:15; Stop 11/22/18 at 12:27; Status DC Morphine Sulfate (Morphine Sulfate) 4 mg PRN Q2HR PRN IV PAIN; Start 11/22/18 at 12:15; Stop 11/23/18 at 12:14 Dextrose/Lactated Ringer's 1,000 ml @ 125 mls/hr 1X ONCE IV Last administered on 11/22/18at 15:06; Start 11/22/18 at 12:15; Stop 11/22/18 at 20:14 Ondansetron HCl (Zofran) 4 mg PRN Q6HRS PRN IV NAUSEA/VOMITING; Start 11/22/18 at 12:30 Labetalol HCl (Normodyne Iv Push) 10 mg PRN Q2HR PRN IVP HYPERTENSION, SEE COMMENTS; Start 11/22/18 at 12:30 Active Scripts Active Proair Hfa Inhaler (Albuterol Sulfate) 8.5 Gm Hfa.aer.ad 1-2 Puff INH PRN Q4- 6HRS PRN 10 Days Tessalon Perle (Benzonatate) 100 Mg Capsule 100 Mg PO TID PRN 7 Days [Pantoprazole] 40 MG Tablet.dr 40 Mg PO BIDAC 30 Days Feosol (Ferrous Sulfate) 325 Mg Tablet 325 Mg PO BIDWMEALS 30 Days Proventil Hfa Inhaler (Albuterol Sulfate) 6.7 Gm Hfa.aer.ad 2 Puff IH PRN Q4HRS PRN Zofran Odt (Ondansetron) 4 Mg Tab.rapdis 4 Mg PO BID PRN [place] 5-325 Tablet (Acetaminophen/Hydrocodone Bitart) 1 Each Tablet 1 Tab PO PRN Q6HRS PRN Allergies Allergies: Coded Allergies: No Known Drug Allergies (Unverified , 01/26/18) ROS Review of System as per HPI, rest of 14 pt neg Physical Exam General: Alert, Oriented X3, Cooperative, No acute distress HEENT: Atraumatic, EOMI Lungs: Clear to auscultation, Normal air movement Heart: S1S2, RRR, no thrills, no rubs, no gallops, no murmurs Cardiovascular: S1, S2 Abdomen: Normal bowel sounds, Soft, No tenderness, No hepatosplenomegaly, No masses Male Genitals Exam: normal genitalia, normal prostate Rectal Exam: not examined PELVIC: Nml ext genitalia Extremities: No clubbing, No cyanosis, No edema, Normal pulses, No tenderness/ swelling Skin: No rashes, No breakdown, No significant lesion Neuro: Normal gait, Normal speech, Strength at 5/5 X4 ext, Normal tone, Sensation intact, Cranial nerves 3-12 NL, Reflexes 2+ Psych/Mental Status: Mental status NL, Mood NL Vitals Vitals Vital Signs Date Time Temp Pulse Resp B/P (MAP) Pulse Ox O2 Delivery O2 Flow Rate FiO2 11/22/18 15:00 97.5 67 18 121/71 (88) 95 Room Air 97.5 Labs Labs Laboratory Tests Test 11/22/18 10:35 11/22/18 11:00 Stool Occult Blood Negative (NEG) White Blood Count 4.8 x10^3/uL (4.0-11.0) Red Blood Count 5.52 x10^6/uL (4.30-5.70) Hemoglobin 16.6 g/dL (13.0-17.5) Hematocrit 48.9 % (39.0-53.0) Mean Corpuscular Volume 89 fL (79-100) Mean Corpuscular Hemoglobin 30 pg (25-35) Mean Corpuscular Hemoglobin Concent 34 g/dL (31-37) Red Cell Distribution Width 12.8 % (11.5-14.5) Platelet Count 212 x10^3/uL (140-400) Neutrophils (%) (Auto) 67 % (31-73) Lymphocytes (%) (Auto) 25 % (24-48) Monocytes (%) (Auto) 7 % (0-9) Eosinophils (%) (Auto) 1 % (0-3) Basophils (%) (Auto) 1 % (0-3) Neutrophils # (Auto) 3.2 x10^3uL (1.8-7.7) Lymphocytes # (Auto) 1.2 x10^3/uL (1.0-4.8) Monocytes # (Auto) 0.3 x10^3/uL (0.0-1.1) Eosinophils # (Auto) 0.0 x10^3/uL (0.0-0.7) Basophils # (Auto) 0.0 x10^3/uL (0.0-0.2) Prothrombin Time 13.7 SEC (11.7-14.0) Prothromb Time International Ratio 1.1 (0.8-1.1) Activated Partial Thromboplast Time 30 SEC (24-38) Sodium Level 141 mmol/L (136-145) Potassium Level 4.3 mmol/L (3.5-5.1) Chloride Level 102 mmol/L (98-107) Carbon Dioxide Level 26 mmol/L (21-32) Anion Gap 13 (6-14) Blood Urea Nitrogen 7 mg/dL (8-26) Creatinine 0.9 mg/dL (0.7-1.3) Estimated GFR (Cockcroft-Gault) 120.7 BUN/Creatinine Ratio 8 (6-20) Glucose Level 104 mg/dL (70-99) Calcium Level 9.4 mg/dL (8.5-10.1) Total Bilirubin 1.1 mg/dL (0.2-1.0) Aspartate Amino Transf (AST/SGOT) 21 U/L (15-37) Alanine Aminotransferase (ALT/SGPT) 21 U/L (16-63) Alkaline Phosphatase 72 U/L (46-116) Total Protein 8.0 g/dL (6.4-8.2) Albumin 4.4 g/dL (3.4-5.0) Albumin/Globulin Ratio 1.2 (1.0-1.7) Lipase 109 U/L (73-393) Laboratory Tests Test 11/22/18 10:35 11/22/18 11:00 Stool Occult Blood Negative (NEG) White Blood Count 4.8 x10^3/uL (4.0-11.0) Red Blood Count 5.52 x10^6/uL (4.30-5.70) Hemoglobin 16.6 g/dL (13.0-17.5) Hematocrit 48.9 % (39.0-53.0) Mean Corpuscular Volume 89 fL (79-100) Mean Corpuscular Hemoglobin 30 pg (25-35) Mean Corpuscular Hemoglobin Concent 34 g/dL (31-37) Red Cell Distribution Width 12.8 % (11.5-14.5) Platelet Count 212 x10^3/uL (140-400) Neutrophils (%) (Auto) 67 % (31-73) Lymphocytes (%) (Auto) 25 % (24-48) Monocytes (%) (Auto) 7 % (0-9) Eosinophils (%) (Auto) 1 % (0-3) Basophils (%) (Auto) 1 % (0-3) Neutrophils # (Auto) 3.2 x10^3uL (1.8-7.7) Lymphocytes # (Auto) 1.2 x10^3/uL (1.0-4.8) Monocytes # (Auto) 0.3 x10^3/uL (0.0-1.1) Eosinophils # (Auto) 0.0 x10^3/uL (0.0-0.7) Basophils # (Auto) 0.0 x10^3/uL (0.0-0.2) Prothrombin Time 13.7 SEC (11.7-14.0) Prothromb Time International Ratio 1.1 (0.8-1.1) Activated Partial Thromboplast Time 30 SEC (24-38) Sodium Level 141 mmol/L (136-145) Potassium Level 4.3 mmol/L (3.5-5.1) Chloride Level 102 mmol/L (98-107) Carbon Dioxide Level 26 mmol/L (21-32) Anion Gap 13 (6-14) Blood Urea Nitrogen 7 mg/dL (8-26) Creatinine 0.9 mg/dL (0.7-1.3) Estimated GFR (Cockcroft-Gault) 120.7 BUN/Creatinine Ratio 8 (6-20) Glucose Level 104 mg/dL (70-99) Calcium Level 9.4 mg/dL (8.5-10.1) Total Bilirubin 1.1 mg/dL (0.2-1.0) Aspartate Amino Transf (AST/SGOT) 21 U/L (15-37) Alanine Aminotransferase (ALT/SGPT) 21 U/L (16-63) Alkaline Phosphatase 72 U/L (46-116) Total Protein 8.0 g/dL (6.4-8.2) Albumin 4.4 g/dL (3.4-5.0) Albumin/Globulin Ratio 1.2 (1.0-1.7) Lipase 109 U/L (73-393) VTE Prophylaxis Ordered VTE Prophylaxis Devices: Contraindicated VTE Pharmacological Prophylaxi: Contraindicated Assessment/Plan Assessment/Plan hematemesis, hemodynamically stable Hx small duodenal ulcer, EGD January 2018 OCc etoh drinker PLAN: ICe chips, NPO GI consulted PPI Hh tmr, if stable home tmr TERESITA PHILIPPE MD Nov 22, 2018 17:48
[2018-11-22 19:00] VITALS: BP 144/94
[2018-11-22] MEDS: AMINO AC 3%/ELECTROLYTE/GLYCER 1,000 ML IV SCH (20:28)
[2018-11-22 23:00] VITALS: BP 151/81
[2018-11-23 03:00] VITALS: BP 145/84
[2018-11-23 04:09] LABS: HEMATOCRIT 45.4 % (39.0-53.0); HEMOGLOBIN 15.1 g/dL (13.0-17.5)
[2018-11-23] MEDS: PANTOPRAZOLE SODIUM IV DRIP 80 MG in IV NORMAL SALINE 100ML 100 ML IV SCH (05:11)
[2018-11-23 07:00] VITALS: BP 143/90
[2018-11-23] MEDS: AMINO AC 3%/ELECTROLYTE/GLYCER 1,000 ML IV SCH (08:36)
--- NOTE | 2018-11-23 08:39 | PDOC ---
PROGRESS NOTES Chief Complaint Chief Complaint Hematemesis. Historically this seems trivial; he agrees not what he saw last summer. Normal hemoglobin and low BUN not consistent with meaningful UGI bleeding. History of DU with bleeding. We don't know H.pylori status. Not biopsied last summer as blood in stomach toxic to the bacteria and may not be seen. History of Present Illness History of Present Illness 28 AA male, hx small duodenal ulcer January 2018 via EGD, off PPI and meds for PUD p/w hematemesis, Seen by GI, peter vazquez ok. If hgb ok then home today, Started on PPI gtt at ER, NO melena, hematochezia or abd pain. Vitals Vitals Vital Signs Date Time Temp Pulse Resp B/P (MAP) Pulse Ox O2 Delivery O2 Flow Rate FiO2 11/23/18 07:00 97.8 67 16 143/90 (107) 97 Room Air 97.8 Physical Exam General: Alert, Oriented X3, Cooperative, No acute distress Lungs: Clear Abdomen: Normal bowel sounds, Soft, No tenderness, No hepatosplenomegaly, No masses Extremities: No clubbing, No cyanosis, No edema, Normal pulses, No tenderness/ swelling Skin: No rashes, No breakdown, No significant lesion Labs LABS Laboratory Tests Test 11/22/18 10:35 11/22/18 11:00 11/23/18 03:20 Stool Occult Blood Negative (NEG) White Blood Count 4.8 x10^3/uL (4.0-11.0) Red Blood Count 5.52 x10^6/uL (4.30-5.70) Hemoglobin 16.6 g/dL (13.0-17.5) 15.1 g/dL (13.0-17.5) Hematocrit 48.9 % (39.0-53.0) 45.4 % (39.0-53.0) Mean Corpuscular Volume 89 fL (79-100) Mean Corpuscular Hemoglobin 30 pg (25-35) Mean Corpuscular Hemoglobin Concent 34 g/dL (31-37) 33 g/dL (31-37) Red Cell Distribution Width 12.8 % (11.5-14.5) Platelet Count 212 x10^3/uL (140-400) Neutrophils (%) (Auto) 67 % (31-73) Lymphocytes (%) (Auto) 25 % (24-48) Monocytes (%) (Auto) 7 % (0-9) Eosinophils (%) (Auto) 1 % (0-3) Basophils (%) (Auto) 1 % (0-3) Neutrophils # (Auto) 3.2 x10^3uL (1.8-7.7) Lymphocytes # (Auto) 1.2 x10^3/uL (1.0-4.8) Monocytes # (Auto) 0.3 x10^3/uL (0.0-1.1) Eosinophils # (Auto) 0.0 x10^3/uL (0.0-0.7) Basophils # (Auto) 0.0 x10^3/uL (0.0-0.2) Prothrombin Time 13.7 SEC (11.7-14.0) Prothromb Time International Ratio 1.1 (0.8-1.1) Activated Partial Thromboplast Time 30 SEC (24-38) Sodium Level 141 mmol/L (136-145) Potassium Level 4.3 mmol/L (3.5-5.1) Chloride Level 102 mmol/L (98-107) Carbon Dioxide Level 26 mmol/L (21-32) Anion Gap 13 (6-14) Blood Urea Nitrogen 7 mg/dL (8-26) Creatinine 0.9 mg/dL (0.7-1.3) Estimated GFR (Cockcroft-Gault) 120.7 BUN/Creatinine Ratio 8 (6-20) Glucose Level 104 mg/dL (70-99) Calcium Level 9.4 mg/dL (8.5-10.1) Total Bilirubin 1.1 mg/dL (0.2-1.0) Aspartate Amino Transf (AST/SGOT) 21 U/L (15-37) Alanine Aminotransferase (ALT/SGPT) 21 U/L (16-63) Alkaline Phosphatase 72 U/L (46-116) Total Protein 8.0 g/dL (6.4-8.2) Albumin 4.4 g/dL (3.4-5.0) Albumin/Globulin Ratio 1.2 (1.0-1.7) Lipase 109 U/L (73-393) Assessment and Plan Assessmemt and Plan Problems Medical Problems: (1) Upper GI bleed Status: Acute Comment Review of Relevant I have reviewed the following items dede (where applicable) has been applied. Labs Laboratory Tests Test 11/22/18 10:35 11/22/18 11:00 11/23/18 03:20 Stool Occult Blood Negative (NEG) White Blood Count 4.8 x10^3/uL (4.0-11.0) Red Blood Count 5.52 x10^6/uL (4.30-5.70) Hemoglobin 16.6 g/dL (13.0-17.5) 15.1 g/dL (13.0-17.5) Hematocrit 48.9 % (39.0-53.0) 45.4 % (39.0-53.0) Mean Corpuscular Volume 89 fL (79-100) Mean Corpuscular Hemoglobin 30 pg (25-35) Mean Corpuscular Hemoglobin Concent 34 g/dL (31-37) 33 g/dL (31-37) Red Cell Distribution Width 12.8 % (11.5-14.5) Platelet Count 212 x10^3/uL (140-400) Neutrophils (%) (Auto) 67 % (31-73) Lymphocytes (%) (Auto) 25 % (24-48) Monocytes (%) (Auto) 7 % (0-9) Eosinophils (%) (Auto) 1 % (0-3) Basophils (%) (Auto) 1 % (0-3) Neutrophils # (Auto) 3.2 x10^3uL (1.8-7.7) Lymphocytes # (Auto) 1.2 x10^3/uL (1.0-4.8) Monocytes # (Auto) 0.3 x10^3/uL (0.0-1.1) Eosinophils # (Auto) 0.0 x10^3/uL (0.0-0.7) Basophils # (Auto) 0.0 x10^3/uL (0.0-0.2) Prothrombin Time 13.7 SEC (11.7-14.0) Prothromb Time International Ratio 1.1 (0.8-1.1) Activated Partial Thromboplast Time 30 SEC (24-38) Sodium Level 141 mmol/L (136-145) Potassium Level 4.3 mmol/L (3.5-5.1) Chloride Level 102 mmol/L (98-107) Carbon Dioxide Level 26 mmol/L (21-32) Anion Gap 13 (6-14) Blood Urea Nitrogen 7 mg/dL (8-26) Creatinine 0.9 mg/dL (0.7-1.3) Estimated GFR (Cockcroft-Gault) 120.7 BUN/Creatinine Ratio 8 (6-20) Glucose Level 104 mg/dL (70-99) Calcium Level 9.4 mg/dL (8.5-10.1) Total Bilirubin 1.1 mg/dL (0.2-1.0) Aspartate Amino Transf (AST/SGOT) 21 U/L (15-37) Alanine Aminotransferase (ALT/SGPT) 21 U/L (16-63) Alkaline Phosphatase 72 U/L (46-116) Total Protein 8.0 g/dL (6.4-8.2) Albumin 4.4 g/dL (3.4-5.0) Albumin/Globulin Ratio 1.2 (1.0-1.7) Lipase 109 U/L (73-393) Laboratory Tests Test 11/22/18 10:35 11/22/18 11:00 11/23/18 03:20 Stool Occult Blood Negative (NEG) White Blood Count 4.8 x10^3/uL (4.0-11.0) Red Blood Count 5.52 x10^6/uL (4.30-5.70) Hemoglobin 16.6 g/dL (13.0-17.5) 15.1 g/dL (13.0-17.5) Hematocrit 48.9 % (39.0-53.0) 45.4 % (39.0-53.0) Mean Corpuscular Volume 89 fL (79-100) Mean Corpuscular Hemoglobin 30 pg (25-35) Mean Corpuscular Hemoglobin Concent 34 g/dL (31-37) 33 g/dL (31-37) Red Cell Distribution Width 12.8 % (11.5-14.5) Platelet Count 212 x10^3/uL (140-400) Neutrophils (%) (Auto) 67 % (31-73) Lymphocytes (%) (Auto) 25 % (24-48) Monocytes (%) (Auto) 7 % (0-9) Eosinophils (%) (Auto) 1 % (0-3) Basophils (%) (Auto) 1 % (0-3) Neutrophils # (Auto) 3.2 x10^3uL (1.8-7.7) Lymphocytes # (Auto) 1.2 x10^3/uL (1.0-4.8) Monocytes # (Auto) 0.3 x10^3/uL (0.0-1.1) Eosinophils # (Auto) 0.0 x10^3/uL (0.0-0.7) Basophils # (Auto) 0.0 x10^3/uL (0.0-0.2) Prothrombin Time 13.7 SEC (11.7-14.0) Prothromb Time International Ratio 1.1 (0.8-1.1) Activated Partial Thromboplast Time 30 SEC (24-38) Sodium Level 141 mmol/L (136-145) Potassium Level 4.3 mmol/L (3.5-5.1) Chloride Level 102 mmol/L (98-107) Carbon Dioxide Level 26 mmol/L (21-32) Anion Gap 13 (6-14) Blood Urea Nitrogen 7 mg/dL (8-26) Creatinine 0.9 mg/dL (0.7-1.3) Estimated GFR (Cockcroft-Gault) 120.7 BUN/Creatinine Ratio 8 (6-20) Glucose Level 104 mg/dL (70-99) Calcium Level 9.4 mg/dL (8.5-10.1) Total Bilirubin 1.1 mg/dL (0.2-1.0) Aspartate Amino Transf (AST/SGOT) 21 U/L (15-37) Alanine Aminotransferase (ALT/SGPT) 21 U/L (16-63) Alkaline Phosphatase 72 U/L (46-116) Total Protein 8.0 g/dL (6.4-8.2) Albumin 4.4 g/dL (3.4-5.0) Albumin/Globulin Ratio 1.2 (1.0-1.7) Lipase 109 U/L (73-393) Medications Current Medications Sodium Chloride 1,000 ml @ 1,000 mls/hr Q1H IV ; Start 11/22/18 at 10:37; Stop 11/22/18 at 11:36; Status DC Pantoprazole Sodium (PROTONIX VIAL for IV PUSH) 80 mg 1X ONCE IVP Last administered on 11/22/18at 11:27; Start 11/22/18 at 10:45; Stop 11/22/18 at 10:46 ; Status DC Pantoprazole Sodium 80 mg/ Sodium Chloride 100 ml @ 10 mls/hr Q10H IV Last administered on 11/23/18at 05:11; Start 11/22/18 at 11:00 Ondansetron HCl (Zofran) 4 mg PRN Q8HRS PRN IV NAUSEA/VOMITING; Start 11/22/18 at 12:15; Stop 11/22/18 at 12:27; Status DC Morphine Sulfate (Morphine Sulfate) 4 mg PRN Q2HR PRN IV PAIN; Start 11/22/18 at 12:15; Stop 11/23/18 at 12:14 Dextrose/Lactated Ringer's 1,000 ml @ 125 mls/hr 1X ONCE IV Last administered on 11/22/18at 15:06; Start 11/22/18 at 12:15; Stop 11/22/18 at 20:14 ; Status DC Ondansetron HCl (Zofran) 4 mg PRN Q6HRS PRN IV NAUSEA/VOMITING; Start 11/22/18 at 12:30 Labetalol HCl (Normodyne Iv Push) 10 mg PRN Q2HR PRN IVP HYPERTENSION, SEE COMMENTS; Start 11/22/18 at 12:30 Amino Acids/ Glycerin/ Electrolytes 1,000 ml @ 80 mls/hr [id number] IV Last administered on 11/22/18at 20:28; Start 11/22/18 at 21:00 Active Scripts Active Proair Hfa Inhaler (Albuterol Sulfate) 8.5 Gm Hfa.aer.ad 1-2 Puff INH PRN Q4- 6HRS PRN 10 Days Tessalon Perle (Benzonatate) 100 Mg Capsule 100 Mg PO TID PRN 7 Days [Pantoprazole] 40 MG Tablet.dr 40 Mg PO BIDAC 30 Days Feosol (Ferrous Sulfate) 325 Mg Tablet 325 Mg PO BIDWMEALS 30 Days Proventil Hfa Inhaler (Albuterol Sulfate) 6.7 Gm Hfa.aer.ad 2 Puff IH PRN Q4HRS PRN Zofran Odt (Ondansetron) 4 Mg Tab.rapdis 4 Mg PO BID PRN [place] 5-325 Tablet (Acetaminophen/Hydrocodone Bitart) 1 Each Tablet 1 Tab PO PRN Q6HRS PRN Vitals/I & O Vital Sign - Last 24 Hours 11/22/18 11/22/18 11/22/18 11/22/18 10:45 10:49 11:01 11:31 Temp 98.6 98.6 Pulse 74 60 72 68 Resp 16 17 19 20 B/P (MAP) 157/84 (108) 157/84 (108) 150/81 (104) 143/91 (108) Pulse Ox 99 96 97 97 O2 Delivery Room Air Room Air Room Air Room Air 11/22/18 11/22/18 11/22/18 11/22/18 12:01 12:31 13:15 15:00 Temp 98.3 97.5 98.3 97.5 Pulse 70 68 78 67 Resp 19 18 16 18 B/P (MAP) 142/75 (97) 135/76 (95) 144/95 (111) 121/71 (88) Pulse Ox 96 97 96 95 O2 Delivery Room Air Room Air Room Air Room Air 11/22/18 11/22/18 11/22/18 11/23/18 19:00 20:00 23:00 03:00 Temp 97.5 98.0 97.9 97.5 98.0 97.9 Pulse 75 69 85 Resp 18 18 18 B/P (MAP) 144/94 (111) 151/81 (104) 145/84 (104) Pulse Ox 93 94 94 O2 Delivery Room Air Room Air Room Air Room Air 11/23/18 07:00 Temp 97.8 97.8 Pulse 67 Resp 16 B/P (MAP) 143/90 (107) Pulse Ox 97 O2 Delivery Room Air Intake and Output 11/22/18 11/22/18 11/23/18 14:59 22:59 06:59 Intake Total 1000 ml 0 ml 800 ml Balance 1000 ml 0 ml 800 ml ZEUS GOMEZ MD Nov 23, 2018 08:39
--- NOTE | 2018-11-23 10:22 | PDOC ---
Subjective: Subjective: Feels fine - would like to leave to [place] his daughter from school at 3:00 p.m. Denies bleeding and abd pain. Objective: Objective: On PPN. Vital Signs: Vital Signs Date Time Temp Pulse Resp B/P (MAP) Pulse Ox O2 Delivery O2 Flow Rate FiO2 11/23/18 07:00 97.8 67 16 143/90 (107) 97 Room Air 97.8 Labs: Laboratory Tests Test 11/22/18 10:35 11/22/18 11:00 11/23/18 03:20 Stool Occult Blood Negative White Blood Count 4.8 x10^3/uL Red Blood Count 5.52 x10^6/uL Hemoglobin 16.6 g/dL 15.1 g/dL Hematocrit 48.9 % 45.4 % Mean Corpuscular Volume 89 fL Mean Corpuscular Hemoglobin 30 pg Mean Corpuscular Hemoglobin Concent 34 g/dL 33 g/dL Red Cell Distribution Width 12.8 % Platelet Count 212 x10^3/uL Neutrophils (%) (Auto) 67 % Lymphocytes (%) (Auto) 25 % Monocytes (%) (Auto) 7 % Eosinophils (%) (Auto) 1 % Basophils (%) (Auto) 1 % Neutrophils # (Auto) 3.2 x10^3uL Lymphocytes # (Auto) 1.2 x10^3/uL Monocytes # (Auto) 0.3 x10^3/uL Eosinophils # (Auto) 0.0 x10^3/uL Basophils # (Auto) 0.0 x10^3/uL Prothrombin Time 13.7 SEC Prothromb Time International Ratio 1.1 Activated Partial Thromboplast Time 30 SEC Sodium Level 141 mmol/L Potassium Level 4.3 mmol/L Chloride Level 102 mmol/L Carbon Dioxide Level 26 mmol/L Anion Gap 13 Blood Urea Nitrogen 7 mg/dL Creatinine 0.9 mg/dL Estimated GFR (Cockcroft-Gault) 120.7 BUN/Creatinine Ratio 8 Glucose Level 104 mg/dL Calcium Level 9.4 mg/dL Total Bilirubin 1.1 mg/dL Aspartate Amino Transf (AST/SGOT) 21 U/L Alanine Aminotransferase (ALT/SGPT) 21 U/L Alkaline Phosphatase 72 U/L Total Protein 8.0 g/dL Albumin 4.4 g/dL Albumin/Globulin Ratio 1.2 Lipase 109 U/L PE: GEN: NAD - walking from restroom to bed LUNGS: CTAB HEART: RRR ABD: NABS, S/ND/NT NEURO/PSYCH: A & O 3 A/P: Hematemesis - no recurrence H/o DU and bleeding requiring endotherapy 01/2018 -- No recurrent bleeding, Hgb remains WNL. Okay to try diet - if tolerates, look to DC. Looks like H. pylori ordered and cancelled twice. DIONICIO CAMACHO Nov 23, 2018 10:22
[2018-11-23] MEDS ORDERED: Pantoprazole PO (10:48)
[2018-11-23 11:00] VITALS: BP 137/93
[2018-11-23] MEDS ORDERED: PANTOPRAZOLE 40 MG TABLET.DR. PO SCH (11:00)
--- NOTE | 2018-11-23 12:21 | NUR ---
SW following. Discussed with RN, pt is from home. RN advised no SW needs at this time and anticipates pt will discharge home today with self care.
--- NOTE | 2018-11-23 13:45 | NUR ---
Discharge instructions and rx given to pt. Answered questions and concerns. Pt dc home accompanied by friend.
--- NOTE | 2018-11-23 20:29 | PDOC3 ---
Discharge Summary Visit Information Date of Admission: Nov 22, 2018 Date of Discharge: Nov 23, 2018 Admitting Diagnosis: Hematemesis Final Diagnosis Problems Medical Problems: (1) Upper GI bleed Status: Acute Brief Hospital Course Allergies Allergies Coded Allergies Type Severity Reaction Last Updated Verified No Known Drug Allergies 01/26/18 No Vital Signs Vital Signs Date Time Temp Pulse Resp B/P (MAP) Pulse Ox O2 Delivery O2 Flow Rate FiO2 11/23/18 11:00 98.4 66 16 137/93 (108) 98 Room Air 98.4 Lab Results Laboratory Tests Test 11/22/18 10:35 11/22/18 11:00 11/23/18 03:20 Stool Occult Blood Negative (NEG) White Blood Count 4.8 x10^3/uL (4.0-11.0) Red Blood Count 5.52 x10^6/uL (4.30-5.70) Hemoglobin 16.6 g/dL (13.0-17.5) 15.1 g/dL (13.0-17.5) Hematocrit 48.9 % (39.0-53.0) 45.4 % (39.0-53.0) Mean Corpuscular Volume 89 fL (79-100) Mean Corpuscular Hemoglobin 30 pg (25-35) Mean Corpuscular Hemoglobin Concent 34 g/dL (31-37) 33 g/dL (31-37) Red Cell Distribution Width 12.8 % (11.5-14.5) Platelet Count 212 x10^3/uL (140-400) Neutrophils (%) (Auto) 67 % (31-73) Lymphocytes (%) (Auto) 25 % (24-48) Monocytes (%) (Auto) 7 % (0-9) Eosinophils (%) (Auto) 1 % (0-3) Basophils (%) (Auto) 1 % (0-3) Neutrophils # (Auto) 3.2 x10^3uL (1.8-7.7) Lymphocytes # (Auto) 1.2 x10^3/uL (1.0-4.8) Monocytes # (Auto) 0.3 x10^3/uL (0.0-1.1) Eosinophils # (Auto) 0.0 x10^3/uL (0.0-0.7) Basophils # (Auto) 0.0 x10^3/uL (0.0-0.2) Prothrombin Time 13.7 SEC (11.7-14.0) Prothromb Time International Ratio 1.1 (0.8-1.1) Activated Partial Thromboplast Time 30 SEC (24-38) Sodium Level 141 mmol/L (136-145) Potassium Level 4.3 mmol/L (3.5-5.1) Chloride Level 102 mmol/L (98-107) Carbon Dioxide Level 26 mmol/L (21-32) Anion Gap 13 (6-14) Blood Urea Nitrogen 7 mg/dL (8-26) Creatinine 0.9 mg/dL (0.7-1.3) Estimated GFR (Cockcroft-Gault) 120.7 BUN/Creatinine Ratio 8 (6-20) Glucose Level 104 mg/dL (70-99) Calcium Level 9.4 mg/dL (8.5-10.1) Total Bilirubin 1.1 mg/dL (0.2-1.0) Aspartate Amino Transf (AST/SGOT) 21 U/L (15-37) Alanine Aminotransferase (ALT/SGPT) 21 U/L (16-63) Alkaline Phosphatase 72 U/L (46-116) Total Protein 8.0 g/dL (6.4-8.2) Albumin 4.4 g/dL (3.4-5.0) Albumin/Globulin Ratio 1.2 (1.0-1.7) Lipase 109 U/L (73-393) Laboratory Tests Test 11/23/18 03:20 Hemoglobin 15.1 g/dL (13.0-17.5) Hematocrit 45.4 % (39.0-53.0) Mean Corpuscular Hemoglobin Concent 33 g/dL (31-37) Brief Hospital Course Mr Roach is a 28 AA male, hx small duodenal ulcer January 2018 via EGD, off PPI and meds for PUD who p/w hematemesis, Seen by peter ASCENCIO and was started on PPI GTT for 24 hours, followed by oral PPI. He had stable Hb and tolerated diet well with no further episodes. He had no melena, hematochezia or abd pain. Hematemesis. Historically this seems trivial; he agrees not what he saw last summer. Normal hemoglobin and low BUN not consistent with meaningful UGI bleeding. History of DU with bleeding. We don't know H.pylori status. Not biopsied last summer as blood in stomach was too fresh to give good h. pylori results. Greater than 30 minutes spent on discharge Discharge Information Condition at Discharge: Improved Follow Up: Weeks (2) Disposition/Orders: D/C to Home Scheduled Ferrous Sulfate (Feosol) 325 Mg Tablet, 325 MG PO BIDWMEALS for 30 Days, #60 Prescribed by: CORI ORTIZ MD on 01/30/18 1021 [Pantoprazole] 40 MG TABLET.DR, 40 MG PO BIDAC for 30 Days Prescribed by: CORI ORTIZ MD on 01/30/18 1021 [Pantoprazole] 40 MG TABLET.DR, 40 MG PO DAILYAC for 30 Days, #30 Ref 2 Prescribed by: ZEUS GOMEZ MD on 11/23/18 1048 Scheduled PRN Albuterol Sulfate (Proventil Hfa Inhaler) 6.7 Gm Hfa.aer.ad, 2 PUFF IH PRN Q4HRS PRN for FOR ASTHMA, #1 Ref 3 Prescribed by: JOLYNN DELAROSA D.O. on 01/09/18 0043 Albuterol Sulfate (Proair Hfa Inhaler) 8.5 Gm Hfa.aer.ad, 1-2 PUFF INH PRN Q4- 6HRS PRN for SHORTNESS OF BREATH for 10 Days, #1 Ref 1 Prescribed by: JACQUELYN IGNACIO APRN on 07/01/18 1455 Benzonatate (Tessalon Perle) 100 Mg Capsule, 100 MG PO TID PRN for COUGH for 7 Days, #21 Ref 0 Prescribed by: JACQUELYN IGNACIO APRN on 07/01/18 1455 Hydrocodone/Apap 5-325 ([place] 5-325 Tablet) 1 Each Tablet, 1 TAB PO PRN Q6HRS PRN for PAIN, #14 Ref 0 Prescribed by: ELOY OLEA on 10/10/17 1254 Ondansetron (Zofran Odt) 4 Mg Tab.rapdis, 4 MG PO BID PRN for NAUSEA/VOMITING, # 10 Prescribed by: ELOY OLEA on 10/10/17 1254 ZEUS GOMEZ MD Nov 23, 2018 20:29
[2019-01-17] MEDS ORDERED: ALBU2.5V8 IH (00:01)
== END 2018-11-23 13:45 | disposition home or self-care (01) | DRG 379 ==
LOC: ER 10:09 → 4 NORTH 12:05
PROVIDERS: ADMIT Internal Medicine; ATTEND Internal Medicine
DX: K92.0 Hematemesis (principal); Z87.11 Personal history of peptic ulcer disease; J45.909 Unspecified asthma, uncomplicated; Z79.899 Other long term (current) drug therapy
CPT/HCPCS: 36415; 80053; 82274; 83690; 85014; 85018; 85025; 85610; 85730; 86850; 86900; 86901; 96374; C9113; 99285-25

== ENCOUNTER 2019-05-25 22:08 | Emergency (ER) | payer OTHER ==
[~2019-05-25] VITALS: Ht 190.5 cm; Wt 76.2 kg
[2019-05-25 23:24] VITALS: BP 142/84
[2019-05-25] MEDS ORDERED: ALBU2.5V8 INH (23:46)
--- NOTE | 2019-05-25 23:47 | PHYS DOC ---
Past Medical History Past Medical History: Asthma, GI Bleed (LEILA LAGOS APRN) Past Surgical History: No Surgical History (LEILA LAGOS APRN) Alcohol Use: Occasionally Drug Use: Marijuana (LEILA LAGOS APRN) Adult General Chief Complaint Chief Complaint: MEDICATION REFILL HPI HPI Patient is a 28 year old male who presents to the ED today requesting a pro-air in his left refill. Patient has no complaints. (LEILA LAGOS APRN) Review of Systems Review of Systems Constitutional: Denies fever or chills [] Respiratory: Request for inhaler. Denies cough or shortness of breath [] Musculoskeletal: Denies back pain or joint pain [] Integument: Denies rash or skin lesions [] Neurologic: Denies headache, focal weakness or sensory changes [] All other systems were reviewed and found to be within normal limits, except as documented in this note. (LEILA LAGOS APRN) Allergies Allergies Allergies Coded Allergies Type Severity Reaction Last Updated Verified No Known Drug Allergies 01/26/18 No (AFRICA LINDA MD) Physical Exam Physical Exam Constitutional: Well developed, well nourished, no acute distress, non-toxic appearance. [] Lungs & Thorax: Bilateral breath sounds clear to auscultation [] Skin: Warm, dry, no erythema, no rash. [] Back: No tenderness, no CVA tenderness. [] Extremities: No tenderness, no cyanosis, no clubbing, ROM intact, no edema. [] Neurologic: Alert and oriented X 3, normal motor function, normal sensory function, no focal deficits noted. [] Psychologic: Affect normal, judgement normal, mood normal. [] (LEILA LAGOS APRN) Current Patient Data Vital Signs Vital Signs Date Time Temp Pulse Resp B/P (MAP) Pulse Ox O2 Delivery O2 Flow Rate FiO2 05/25/19 23:24 98.1 81 16 142/84 (103) 98 Room Air 98.1 (AFRICA LINDA MD) EKG EKG [] (LEILA LAGOS APRN) Radiology/Procedures Radiology/Procedures [] (LEILA LAGOS APRN) Course & Med Decision Making Course & Med Decision Making Pertinent Labs and Imaging studies reviewed. (See chart for details) This is a 28-year-old male patient presenting to the ED today with a request for pro-air, no other complaints. Prescription given. (LEILA LAGOS APRN) Dragon Disclaimer Dragon Disclaimer This electronic medical record was generated, in whole or in part, using a voice recognition dictation system. 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 Use it as ordered. Follow-up with your own doctor in 1-2 weeks. Scripts Albuterol Sulfate (PROAIR HFA INHALER) 8.5 Gm Hfa.aer.ad 1 PUFF INH PRN Q6HRS PRN for SHORTNESS OF BREATH, #10 INHALER 1 Refill Prov: LEILA LAGOS APRN 05/25/19 Attending Signature I have participated in the care of this patient and I have reviewed and agree with all pertinent clinical information above including history, exam, and recommendations. (AFRICA LINDA MD) LEILA LAGOS APRN May 25, 2019 23:47 AFRICA LINDA MD May 27, 2019 02:53
== END 2019-05-25 23:50 | disposition home or self-care (01) ==
LOC: ER 22:08
DX: J45.909 Unspecified asthma, uncomplicated (principal); Z76.0 Encounter for issue of repeat prescription
CPT/HCPCS: 99283

== ENCOUNTER 2019-05-31 10:49 | Emergency (ER) | payer OTHER ==
[~2019-05-31] VITALS: Ht 190.5 cm; Wt 76.2 kg
[2019-05-31 11:12] VITALS: BP 163/96
[2019-05-31] MEDS ORDERED: NAPR-514 PO (11:56)
[2019-05-31] MEDS ORDERED: PENI500T PO (11:56)
--- NOTE | 2019-05-31 11:56 | PHYS DOC ---
Past Medical History Past Medical History: Asthma, GI Bleed Past Surgical History: No Surgical History Alcohol Use: Occasionally Drug Use: Marijuana Adult General Chief Complaint Chief Complaint: DENTAL PROBLEM HPI HPI Patient is a 29 year old AA male who presents to the ER with complaints of right lower dental pain x 2 days with history of a broken tooth. Pt currently rates his pain an 8/10 on the pain scale, he denies any alleviating factors. Review of Systems Review of Systems Constitutional: Denies fever or chills [] Eyes: Denies change in visual acuity, redness, or eye pain[] HENT: Denies ear pain, nasal congestion, or sore throat; see HPI Respiratory: Denies cough or shortness of breath [] Cardiovascular: No additional information not addressed in HPI [] GI: Denies abdominal pain, nausea, vomiting Integument: Denies rash or skin lesions [] Neurologic: Denies headache, focal weakness or sensory changes [] Complete systems were reviewed and found to be within normal limits, except as documented in this note. Allergies Allergies Allergies Coded Allergies Type Severity Reaction Last Updated Verified No Known Drug Allergies 01/26/18 No Physical Exam Physical Exam Constitutional: Well developed, well nourished, no acute distress, non-toxic appearance. [] HENT: Normocephalic, atraumatic, bilateral external ears normal, oropharynx moist, no oral exudates, nose normal; tooth #32 fractured with visible gingival erythema, no visible abscess, dental caries present in RLQ of mouth [] Eyes: PERRLA, EOMI, conjunctiva normal, no discharge. [] Neck: Normal range of motion, no tenderness, supple, no stridor. [] Cardiovascular:Heart rate regular rhythm, no murmur [] Lungs & Thorax: Bilateral breath sounds clear to auscultation [] Skin: Warm, dry, no erythema, no rash. [] Extremities: No cyanosis, ROM intact, no edema. [] Neurologic: Alert and oriented X 3, no focal deficits noted. [] Psychologic: Affect normal, judgement normal, mood normal. [] Current Patient Data Vital Signs Vital Signs Date Time Temp Pulse Resp B/P (MAP) Pulse Ox O2 Delivery O2 Flow Rate FiO2 05/31/19 11:12 97.8 73 16 163/96 (118) 97 Room Air 97.8 EKG EKG [] Radiology/Procedures Radiology/Procedures [] Course & Med Decision Making Course & Med Decision Making Pertinent Labs and Imaging studies reviewed. (See chart for details) [] Dragon Disclaimer Dragon Disclaimer This electronic medical record was generated, in whole or in part, using a voice recognition dictation system. Departure Departure Impression: Primary Impression: Pain, dental Additional Impression: Infected dental caries Disposition: HOME, SELF-CARE Condition: STABLE Referrals: NO PCP (PCP) Patient Instructions: Dental Caries, Dental Pain, [id number] Additional Instructions: Fill prescription(s) and use as directed. Follow up with dentist using the referral list provided. Return to the ER if symptoms worsen. Scripts Naproxen (NAPROXEN) 500 Mg Tablet 1 TAB PO BID for 10 Days, #20 TAB 0 Refills Prov: JACQUELYN IGNACIO APRN 05/31/19 Penicillin V Potassium (PENICILLIN V POTASSIUM) 500 Mg Tablet 1 TAB PO QID for 10 Days, #40 TAB 0 Refills Prov: JACQUELYN IGNACIO APRN 05/31/19 Problem Qualifiers JACQUELYN IGNACIO APRN May 31, 2019 11:56
== END 2019-05-31 12:05 | disposition home or self-care (01) ==
LOC: ER 10:49
DX: K04.7 Periapical abscess without sinus (principal); J45.909 Unspecified asthma, uncomplicated
CPT/HCPCS: 99283

== ENCOUNTER 2019-06-23 08:44 | Emergency (ER) | payer OTHER ==
[~2019-06-23] VITALS: Ht 190.5 cm; Wt 84.8 kg
[~2019-06-23 08:44] MED LIST changes: +NAPR-514 PO; +PENI500T PO
[2019-06-23 09:04] VITALS: BP 139/76
[2019-06-23] MEDS ORDERED: IPRATRPIUM/ALBUTEROL 0.5/2.5MG 3 ML NEBU. NEB ONE (09:30)
[2019-06-23] MEDS ORDERED: ALBU2.5V8 IH (09:36)
--- NOTE | 2019-06-23 09:36 | PHYS DOC ---
Past Medical History Past Medical History: Asthma, GI Bleed Past Surgical History: No Surgical History Alcohol Use: Occasionally Drug Use: Marijuana Adult General Chief Complaint Chief Complaint: ASTHMA HPI HPI Patient is a 29 year old male with hx of Asthma who presents with wheezing and SOA due to Asthma since yesterday. He states he ran out of his inhaler Review of Systems Review of Systems Constitutional: Denies fever or chills [] Eyes: Denies change in visual acuity, redness, or eye pain [] HENT: Denies nasal congestion or sore throat [] Respiratory: Reports wheezing, and SOA Cardiovascular: No additional information not addressed in HPI [] GI: Denies abdominal pain, nausea, vomiting, bloody stools or diarrhea [] : Denies dysuria or hematuria [] Musculoskeletal: Denies back pain or joint pain [] Integument: Denies rash or skin lesions [] Neurologic: Denies headache, focal weakness or sensory changes [] All other systems were reviewed and found to be within normal limits, except as documented in this note. Current Medications Current Medications Current Medications Medications (Trade) Dose Ordered Sig/Alber[place] Start Time Stop Time Status Last Admin Dose Admin Albuterol/ Ipratropium (Duoneb) 3 ml 1X ONCE 06/23/19 09:30 06/23/19 09:31 06/23/19 09:25 3 ML Allergies Allergies Allergies Coded Allergies Type Severity Reaction Last Updated Verified No Known Drug Allergies 01/26/18 No Physical Exam Physical Exam Constitutional: Well developed, well nourished, no acute distress, non-toxic appearance. [] HENT: Normocephalic, atraumatic, bilateral external ears normal, oropharynx moist, no oral exudates, nose normal. [] Eyes: PERRLA, EOMI, conjunctiva normal, no discharge. [] Neck: Normal range of motion, no tenderness, supple, no stridor. [] Cardiovascular:Heart rate regular rhythm, no murmur [] Lungs & Thorax: tight chest with wheezing to upper lung bases Abdomen: Bowel sounds normal, soft, no tenderness, no masses, no pulsatile masses. [] Skin: Warm, dry, no erythema, no rash. [] Back: No tenderness, no CVA tenderness. [] Extremities: No tenderness, no cyanosis, no clubbing, ROM intact, no edema. [] Neurologic: Alert and oriented X 3, normal motor function, normal sensory function, no focal deficits noted. [] Psychologic: Affect normal, judgement normal, mood normal. [] Current Patient Data Vital Signs Vital Signs Date Time Temp Pulse Resp B/P (MAP) Pulse Ox O2 Delivery O2 Flow Rate FiO2 06/23/19 09:25 97 Room Air 06/23/19 09:04 98.5 94 20 139/76 (97) 98.5 EKG EKG [] Radiology/Procedures Radiology/Procedures [] Course & Med Decision Making Course & Med Decision Making Pertinent Labs and Imaging studies reviewed. (See chart for details) This is a 29-year-old male patient who presents to the ED today with asthma symptoms after running out of his inhaler. Patient was given a DuoNeb treatment and 1 dose of prednisone. Prescription was sent to the pharmacy for albuterol. F/u with PcP next week. Dragon Disclaimer Dragon Disclaimer This electronic medical record was generated, in whole or in part, using a voice recognition dictation system. Departure Departure Impression: Primary Impression: Asthma with acute exacerbation Disposition: 01 HOME, SELF-CARE Condition: STABLE Referrals: NO PCP (PCP) follow up with your doctor in 1-2 weeks Patient Instructions: Asthma, Adult, [id number] Additional Instructions: Please go to the pharmacy and black pickler your albuterol and use it as ordered. Follow up with your doctor next week Scripts Albuterol Sulfate (PROVENTIL HFA INHALER) 6.7 Gm Hfa.aer.ad 1 PUFF IH PRN Q4HRS PRN for FOR ASTHMA, #1 INHALER 1 Refill Prov: LEILA LAGOS APRN 06/23/19 Problem Qualifiers Primary Impression: Asthma with acute exacerbation Asthma severity: mild Asthma persistence: intermittent Qualified Codes: J45.21 - Mild intermittent asthma with (acute) exacerbation LEILA LAGOS APRN Jun 23, 2019 09:36
[2019-06-23] MEDS ORDERED: predniSONE 10 MG TABLET PO ONE (09:45)
== END 2019-06-23 09:55 | disposition home or self-care (01) ==
LOC: ER 08:44
DX: J45.21 Mild intermittent asthma with (acute) exacerbation (principal)
CPT/HCPCS: 94640; 99283; J7512; J7620

== ENCOUNTER 2019-09-22 10:32 | Emergency (ER) | payer OTHER ==
[~2019-09-22] VITALS: Ht 193 cm; Wt 83.6 kg
[~2019-09-22 10:32] MED LIST changes: -ALBU2.5V8 IH; +PROVENTIL HFA6.7 GM IH
[2019-09-22 11:20] VITALS: BP 147/77
--- NOTE | 2019-09-22 12:15 | PHYS DOC ---
Past Medical History Past Medical History: Asthma, GI Bleed Additional Past Medical Histor: GI BLEED Past Surgical History: No Surgical History Alcohol Use: Occasionally Drug Use: Marijuana Adult General Chief Complaint Chief Complaint: LOWER BACK PAIN OR INJURY HPI HPI Patient is a 29 year old male with history of asthma who presents to the ED today complaining of 2 out of 10 left low back pain intermittently for week. Patient reports pain began after he lifted boxes while moving. Patient denies any trauma. Denies any pain radiating to bilateral lower extremities, denies any loss of bowel bladder function. He describes the pain as throbbing and intermittent worse on certain movements. He reports Espon baths have been helping. Patient is also requesting a refill for albuterol inhaler and Protonix. Review of Systems Review of Systems Constitutional: Request for medication refills. Denies fever or chills [] Eyes: Denies change in visual acuity, redness, or eye pain [] HENT: Denies nasal congestion or sore throat [] Respiratory: Denies cough or shortness of breath [] Cardiovascular: No additional information not addressed in HPI [] GI: Denies abdominal pain, nausea, vomiting, bloody stools or diarrhea [] : Denies dysuria or hematuria [] Musculoskeletal: Reports right low back pain Integument: Denies rash or skin lesions [] Neurologic: Denies headache, focal weakness or sensory changes [] All other systems were reviewed and found to be within normal limits, except as documented in this note. Allergies Allergies Allergies Coded Allergies Type Severity Reaction Last Updated Verified No Known Drug Allergies 01/26/18 No Physical Exam Physical Exam Constitutional: Well developed, well nourished, no acute distress, non-toxic appearance. [] HENT: Normocephalic, atraumatic, bilateral external ears normal, oropharynx moist, no oral exudates, nose normal. [] Eyes: PERRLA, EOMI, conjunctiva normal, no discharge. [] Neck: Normal range of motion, no tenderness, supple, no stridor. [] Cardiovascular:Heart rate regular rhythm, no murmur [] Lungs & Thorax: Bilateral breath sounds clear to auscultation [] Abdomen: Bowel sounds normal, soft, no tenderness, no masses, no pulsatile masses. [] Skin: Warm, dry, no erythema, no rash. [] Back: Slight paraspinal muscle tenderness to the left lower lumbar spine, no midline lumbar spine tenderness, no CVA tenderness. [] Extremities: No tenderness, no cyanosis, no clubbing, ROM intact, no edema. [] Neurologic: Alert and oriented X 3, normal motor function, normal sensory function, no focal deficits noted. [] Psychologic: Affect normal, judgement normal, mood normal. [] Current Patient Data Vital Signs Vital Signs Date Time Temp Pulse Resp B/P (MAP) Pulse Ox O2 Delivery O2 Flow Rate FiO2 09/22/19 11:20 98.5 93 18 147/77 (100) 98 Room Air 98.5 EKG EKG [] Radiology/Procedures Radiology/Procedures [] Course & Med Decision Making Course & Med Decision Making Pertinent Labs and Imaging studies reviewed. (See chart for details) This is a 29-year-old male patient presenting to the ED today with lumbosacral strain after lifting boxes while moving a week ago. No cauda equina syndrome symptoms. Given prescription for Flexeril,and instructed to take with tylenol He also requested a prescription refill for omeprazole and albuterol inhaler which were given him. Encouraged to follow-up with PCP. Other supportive measures for back pain recommended. Dragon Disclaimer Dragon Disclaimer This electronic medical record was generated, in whole or in part, using a voice recognition dictation system. Departure Departure Impression: Primary Impression: Medication refill Additional Impression: Lumbosacral strain Disposition: 01 HOME, SELF-CARE Condition: STABLE Referrals: NO PCP (PCP) follow up with your doctor in 1-2 weeks Patient Instructions: Lumbosacral Strain, Medication Refill, Emergency Department Additional Instructions: You were evaluated in the emergency room for back pain. You likely have lumbosacral strain. Continue using Epsom salt baths/soaks, you can also use a heating pad, take the rest of the prescribed medications as ordered. Scripts Pantoprazole Sodium (PROTONIX) 20 Mg Tablet.dr 1 TAB PO DAILY, #90 TAB Prov: LEILA LAGOS APRN 09/22/19 Albuterol Sulfate (PROAIR HFA INHALER) 8.5 Gm Hfa.aer.ad 2 PUFF IH PRN Q4-6HRS PRN for wheezing for 21 Days, #1 INHALER 0 Refills Prov: LEILA LAGOS APRN 09/22/19 Cyclobenzaprine Hcl (CYCLOBENZAPRINE HCL) 10 Mg Tablet 1 TAB PO TID, #30 TAB Prov: LEILA LAGOS APRN 09/22/19 Problem Qualifiers Additional Impression: Lumbosacral strain Encounter type: initial encounter Qualified Codes: S39.012A - Strain of muscle, fascia and tendon of lower back, initial encounter LEILA LAGOS APRN Sep 22, 2019 12:15
[2019-09-22] MEDS ORDERED: ALBU2.5V8 IH (12:19)
[2019-09-22] MEDS ORDERED: CYCL10TA2 PO (12:19)
[2019-09-22] MEDS ORDERED: PANT20TA2 PO (12:19)
== END 2019-09-22 12:39 | disposition home or self-care (01) ==
LOC: ER 10:32
DX: S39.012A Strain of muscle, fascia and tendon of lower back, initial encounter (principal); Z76.0 Encounter for issue of repeat prescription; J45.909 Unspecified asthma, uncomplicated; X50.0XXA Overexertion from strenuous movement or load, initial encounter; Y93.89 Activity, other specified; Y92.89 Other specified places as the place of occurrence of the external cause; Y99.8 Other external cause status
CPT/HCPCS: 99283

== ENCOUNTER 2019-12-08 14:07 | Emergency (ER) | payer OTHER ==
[~2019-12-08] VITALS: Ht 193 cm; Wt 76.8 kg
[~2019-12-08 14:07] MED LIST changes: +ALBU2.5V8 IH; +CYCL10TA2 PO; +PANT20TA2 PO
--- NOTE | 2019-12-08 14:38 | RAD ---
CHEST AP ONLY History: Chest pain Comparison: July 01, 2018 Findings: Single view of the chest is submitted. There is no infiltrate, pneumothorax, or effusion. The pericardial cardiac silhouette is within normal limits in size. Impression: 1. There is no radiographic evidence of acute cardiopulmonary disease. Electronically signed by: Naresh Amador MD (12/08/2019 2:35 PM) [id number]
[2019-12-08 15:02] LABS: ANION GAP 7 (6-14); BLOOD UREA NITROGEN 7 mg/dL (8-26); BUN/CREATININE RATIO 7 (6-20); CALCIUM 9.4 mg/dL (8.5-10.1); CARBON DIOXIDE 33 mmol/L (21-32); CHLORIDE 99 mmol/L (98-107); GFR 106.2; GLUCOSE 92 mg/dL (70-99); SODIUM 139 mmol/L (136-145)
[2019-12-08 15:08] LABS: ALBUMIN 4.4 g/dL (3.4-5.0); ALBUMIN/GLOBULIN RATIO 1.3 (1.0-1.7); ALK PHOS 76 U/L (46-116); ALT (SGPT) 16 U/L (16-63); AST (SGOT) 16 U/L (15-37); LACTATE DEHYDROGENASE 113 U/L (85-227); TOTAL BILIRUBIN 1.5 mg/dL (0.2-1.0); TOTAL PROTEIN 7.9 g/dL (6.4-8.2)
[2019-12-08 15:09] LABS: BASO % 1 % (0-3); EOS # 0.2 x10^3/uL (0.0-0.7); EOS % 4 % (0-3); HEMATOCRIT 49.1 % (39.0-53.0); HEMOGLOBIN 16.5 g/dL (13.0-17.5); LYMPH # 1.6 x10^3/uL (1.0-4.8); LYMPH % 43 % (24-48); MEAN CORPUSCULAR HEMOGLOBIN 30 pg (25-35); MEAN CORPUSCULAR HGB CONC 34 g/dL (31-37); MEAN CORPUSCULAR VOLUME 90 fL (79-100); MONO # 0.3 x10^3/uL (0.0-1.1); MONO % 8 % (0-9); NEUT # 1.7 x10^3/uL (1.8-7.7); NEUT % 44 % (31-73); PLATELET COUNT 261 x10^3/uL (140-400); RED BLOOD COUNT 5.47 x10^6/uL (4.30-5.70); RED CELL DISTRIBUTION WIDTH 12.7 % (11.5-14.5); WHITE BLOOD COUNT 3.7 x10^3/uL (4.0-11.0)
[2019-12-08 15:15] LABS: C-REACTIVE PROTEIN < 0.5 mg/L (0-3.3)
--- NOTE | 2019-12-08 15:29 | RAD ---
Abdominal and Pelvis CT, Without Contrast: History: Left flank pain Comparison: None. Procedure: Axial images are obtained of the abdomen and pelvis, without IV or oral contrast. Oral Contrast: No Findings: Evaluation of solid organs is limited without contrast. Liver: Normal. Spleen: Normal. Pancreas: Normal. Adrenal Glands: Normal. Kidneys: Normal. There is no free air or free fluid. There is no lymphadenopathy. The urinary bladder appears normal. There is no pericolonic inflammation identified. Impression: No acute findings. End impression PQRS Compliance Statement: One or more of the following individualized dose reduction techniques were utilized for this examination: 1. Automated exposure control 2. Adjustment of the mA and/or kV according to patient size 3. Use of iterative reconstruction technique Electronically signed by: Ronni Riggs III, MD (12/08/2019 3:26 PM) [id number]
[2019-12-08] MEDS ORDERED: KETOROLAC 30 MG/ML VIAL. IVP ONE (15:45)
[2019-12-08] MEDS ORDERED: METHOCARBAMOL 500 MG TABLET PO ONE (15:45)
[2019-12-08] MEDS ORDERED: METH-38 PO (15:52)
--- NOTE | 2019-12-08 15:53 | PHYS DOC ---
Past Medical History Past Medical History: Asthma, GI Bleed Additional Past Medical Histor: GI BLEED Past Surgical History: No Surgical History Smoking Status: Current Every Day Smoker Alcohol Use: Occasionally Drug Use: Marijuana General Adult EDM: Chief Complaint: CHEST WALL PAIN HPI: HPI: Patient is a 29 year old male who presents with left-sided chest wall pain and right-sided back pain. Patient states that he started feeling this chest tightness over the last couple of days and it has progressively gotten worse. He denies any shortness of breath with this. He does have increased pain when he takes a deep breath. He is also now having pain in his left flank that he feels is around his kidney. He denies URI symptoms, fever, hematuria, dysuria, nausea, vomiting. He has not tried anything for symptoms at home. Review of Systems: Review of Systems: General: Denies fever, chills, sweats, fatigue Eyes: Denies drainage, blurred vision HENT: Denies rhinorrhea, sore throat Respiratory: Denies cough, shortness of breath, wheezing Cardiac: Denies edema, palpitations. Reports chest pain GI: Denies abdominal pain, N/V reports flank pain MSK: Denies back pain, neck pain Skin: Denies rash, jaundice Neuro: Denies headache, dizziness Psychiatric: Denies SI/HI Heart Score: Risk Factors: Risk Factors: DM, Current or recent (<one month) smoker, HTN, HLP, family history of CAD, obesity. Risk Scores: Score 0 - 3: 2.5% MACE over next 6 weeks - Discharge Home Score 4 - 6: 20.3% MACE over next 6 weeks - Admit for Clinical Observation Score 7 - 10: 72.7% MACE over next 6 weeks - Early Invasive Strategies Allergies: Allergies: Allergies Coded Allergies Type Severity Reaction Last Updated Verified No Known Drug Allergies 01/26/18 No Physical Exam: PE: Constitutional: Well developed, well nourished, Cooperative, NAD, non-toxic appearing HEENT: Normocephalic, atraumatic, oropharynx moist, EOMI, PERRL, no drainage from eyes, normal conjunctiva Neck: Supple, normal range of motion, no stridor Cardiovascular: RRR, 2+ radial pulses bilaterally, no edema Respiratory: CTA bilaterally, no respiratory distress, no wheezing/crackles Abdomen: Soft, nontender, nondistended, no masses Skin: Warm, dry, intact Extremities: No obvious deformities, left mid back tenderness on exam Neurologic: Alert and Oriented x3, motor and sensory function grossly normal, no focal deficits Psychologic: Normal affect, normal judgment, normal mood. No SI/HI Current Patient Data: Labs: Laboratory Tests Test 12/08/19 14:15 White Blood Count 3.7 x10^3/uL (4.0-11.0) L Red Blood Count 5.47 x10^6/uL (4.30-5.70) Hemoglobin 16.5 g/dL (13.0-17.5) Hematocrit 49.1 % (39.0-53.0) Mean Corpuscular Volume 90 fL (79-100) Mean Corpuscular Hemoglobin 30 pg (25-35) Mean Corpuscular Hemoglobin Concent 34 g/dL (31-37) Red Cell Distribution Width 12.7 % (11.5-14.5) Platelet Count 261 x10^3/uL (140-400) Neutrophils (%) (Auto) 44 % (31-73) Lymphocytes (%) (Auto) 43 % (24-48) Monocytes (%) (Auto) 8 % (0-9) Eosinophils (%) (Auto) 4 % (0-3) H Basophils (%) (Auto) 1 % (0-3) Neutrophils # (Auto) 1.7 x10^3/uL (1.8-7.7) L Lymphocytes # (Auto) 1.6 x10^3/uL (1.0-4.8) Monocytes # (Auto) 0.3 x10^3/uL (0.0-1.1) Eosinophils # (Auto) 0.2 x10^3/uL (0.0-0.7) Basophils # (Auto) 0.0 x10^3/uL (0.0-0.2) D-Dimer (Francine) < 0.27 ug/mlFEU Sodium Level 139 mmol/L (136-145) Potassium Level 4.0 mmol/L (3.5-5.1) Chloride Level 99 mmol/L (98-107) Carbon Dioxide Level 33 mmol/L (21-32) H Anion Gap 7 (6-14) Blood Urea Nitrogen 7 mg/dL (8-26) L Creatinine 1.0 mg/dL (0.7-1.3) Estimated GFR (Cockcroft-Gault) 106.2 BUN/Creatinine Ratio 7 (6-20) Glucose Level 92 mg/dL (70-99) Calcium Level 9.4 mg/dL (8.5-10.1) Total Bilirubin 1.5 mg/dL (0.2-1.0) H Aspartate Amino Transferase (AST) 16 U/L (15-37) Alanine Aminotransferase (ALT) 16 U/L (16-63) Alkaline Phosphatase 76 U/L (46-116) Lactate Dehydrogenase 113 U/L (85-227) C-Reactive Protein, Quantitative < 0.5 mg/L (0-3.3) Total Protein 7.9 g/dL (6.4-8.2) Albumin 4.4 g/dL (3.4-5.0) Albumin/Globulin Ratio 1.3 (1.0-1.7) Laboratory Tests 12/08/19 14:15 Laboratory Tests 12/08/19 14:15 Vital Signs: Vital Signs Date Time Temp Pulse Resp B/P (MAP) Pulse Ox O2 Delivery O2 Flow Rate FiO2 12/08/19 14:15 98.5 70 19 160/79 (106) 98 Room Air 98.5 EKG: EKG: Normal sinus rhythm, normal QTC, no ST elevation [] Radiology/Procedures: Radiology/Procedures: Chest x-ray and CT abdomen pelvis without contrast showed no acute process Course & Med Decision Making: Course & Med Decision Making Pertinent Labs and Imaging studies reviewed. (See chart for details) Patient is a 29-year-old male who presents to the emergency room complaining of chest and flank pain. Patient does not have any risk factors for cardiac pathology and this is very atypical for cardiac chest pain. Patient does not need a cardiac work-up at this time. Chest x-ray was negative. Basic labs and a CT abdomen pelvis to evaluate flank pain were ordered. Patient does not have a kidney stone or any other obvious signs of pathology on CT. Patient was given muscle relaxers and anti-inflammatory medication. It is likely that this is viral in nature. It is possible that he could have the novel coronavirus 19. I have discussed quarantining with him. We have discussed the he should quarantine until he is symptom free for 3 days. Due to limited testing we are unable to test at this time. Patient's test results and vitals while in the ED were fully reviewed and discussed with the patient. Patient is stable and at this time does not need admission to the hospital. We have discussed strict return precautions and the importance of following up with their Primary Care Physician. Patient stated understanding and was given an opportunity to ask any questions. Dragon Disclaimer: Dragon Disclaimer: This electronic medical record was generated, in whole or in part, using a voice recognition dictation system. Departure Departure Impression: Primary Impression: Chest pain Additional Impression: Lumbosacral strain Disposition: HOME, SELF-CARE Condition: GOOD Referrals: NO PCP (PCP) Scripts Methocarbamol (ROBAXIN-750) 750 Mg Tablet 1 TAB PO BID PRN for MUSCLE PAIN for 30 Days, #15 TAB 0 Refills Prov: LARRY HUTCHISON MD 12/08/19 LARRY HUTCHISON MD Dec 08, 2019 15:53
[2019-12-08] MEDS ORDERED: ALBU2.5V5 NEB (15:57)
[2019-12-08 16:15] VITALS: BP 140/96
--- NOTE | 2019-12-08 16:20 | EKG ---
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 Electronically Signed On 12-10-2019 10:04:22 CDT by Richie Lange
== END 2019-12-08 16:15 | disposition home or self-care (01) ==
LOC: ER 14:07
DX: S39.012A Strain of muscle, fascia and tendon of lower back, initial encounter (principal); R07.89 Other chest pain; F17.200 Nicotine dependence, unspecified, uncomplicated; F12.90 Cannabis use, unspecified, uncomplicated; X58.XXXA Exposure to other specified factors, initial encounter; Y93.89 Activity, other specified; Y92.89 Other specified places as the place of occurrence of the external cause; Y99.8 Other external cause status
CPT/HCPCS: 36415; 71045; 74176; 80053; 83615; 85025; 85379; 86140; 93005; 96374; 99285; J1885

== ENCOUNTER 2020-11-01 21:25 | Emergency (ER) | payer OTHER ==
[~2020-11-01] VITALS: Ht 195.6 cm; Wt 75.0 kg
[~2020-11-01 21:25] MED LIST changes: +ALBU2.5V5 NEB; +METH-38 PO
[2020-11-01] MEDS ORDERED: LIDO:MAALOX 1:1 20 ML SINGLE DOSE. SWSW ONE (22:00)
--- NOTE | 2020-11-01 22:06 | ED.ADGEN ---
Past Medical History Past Medical History: Asthma, GI Bleed Additional Past Medical Histor: GI BLEED, ULCERS Past Surgical History: No Surgical History Smoking Status: Never Smoker Alcohol Use: Occasionally Drug Use: Marijuana General Adult EDM: Chief Complaint: ABDOMINAL PAIN HPI: HPI: Patient is a 30 year old male coming in for abdominal pain since yesterday. Patient states he had eaten some pizza with red pepper on it and then subsequently started having pain. Pain himself vomit which helps the pain but then started left lower abdominal pain. Denies any hematemesis or bilious emesis. Denies any recent illness. Patient states he has a history of gastric ulcers and asthma. Also uses tobacco, alcohol and marijuana. Review of Systems: Review of Systems: All other systems within normal limits except for as noted in the HPI Current Medications: Current Medications Medications (Trade) Dose Ordered Sig/Alberta Start Time Stop Time Status Last Admin Dose Admin Multi-Ingredient Mouthwash/Gargle (Gi Cocktail) 20 ml 1X ONCE 11/01/20 22:00 11/01/20 22:01 DC 11/01/20 21:56 20 ML Pantoprazole Sodium (Protonix) 40 mg 1X ONCE 11/01/20 23:00 11/01/20 23:01 Allergies: Allergies: Allergies Coded Allergies Type Severity Reaction Last Updated Verified No Known Drug Allergies 01/26/18 No Physical Exam: PE: Constitutional: Well developed, well nourished, no acute distress, non-toxic appearance. [] HENT: Normocephalic, atraumatic, bilateral external ears normal, nose normal. [] Eyes: PERRLA, conjunctiva normal, no discharge. [] Neck: No rigidity, supple, no stridor. [] Cardiovascular: Regular rate and rhythm, brisk cap refill [] Lungs & Thorax: Non labored symmetric respirations, no tachypnea or respiratory distress [] Abdomen: Soft, nondistended, left mid abdominal and epigastric tenderness. Skin: Warm, dry, no erythema, no rash. [] Back: Unremarkable Extremities: No deformities, range of motion grossly intact, no lower extremity edema [] Neurologic: Alert and oriented X 3, no focal deficits noted. [] Psychologic: Affect normal, judgement normal, mood normal. [] Current Patient Data: Vital Signs: Vital Signs Date Time Temp Pulse Resp B/P (MAP) Pulse Ox O2 Delivery O2 Flow Rate FiO2 11/01/20 21:25 98.7 73 22 155/91 (112) 99 Room Air 98.7 EKG: EKG: [] Heart Score: C/O Chest Pain: N/A Risk Factors: Risk Factors: DM, Current or recent (<one month) smoker, HTN, HLP, family history of CAD, obesity. Risk Scores: Score 0 - 3: 2.5% MACE over next 6 weeks - Discharge Home Score 4 - 6: 20.3% MACE over next 6 weeks - Admit for Clinical Observation Score 7 - 10: 72.7% MACE over next 6 weeks - Early Invasive Strategies Radiology/Procedures: Radiology/Procedures: [] Course & Med Decision Making: Course & Med Decision Making Pain completely resolved with GI cocktail. Discussed return precautions starting back on antacid medication, patient has not been on one for about 1 year. Dragon Disclaimer: Dragon Disclaimer: This electronic medical record was generated, in whole or in part, using a voice recognition dictation system. Departure Departure Impression: Primary Impression: Gastritis Disposition: 01 DC HOME SELF CARE/HOMELESS Condition: STABLE Referrals: NO PCP (PCP) Patient Instructions: Gastritis, Adult Scripts Sucralfate (CARAFATE) 1 Gm Tablet 1 TAB PO TID for antacid for 30 Days, #90 TAB 0 Refills Prov: HERIBERTO STRICKLAND MD 11/01/20 Omeprazole (OMEPRAZOLE) 40 Mg Capsule. 1 CAP PO DAILY for antacid, #30 CAP 3 Refills Prov: HERIBERTO STRICKLAND MD 11/01/20 HERIBERTO STRICKLAND MD Nov 01, 2020 22:06
[2020-11-01] MEDS ORDERED: SUCR1TAB35 PO (22:22)
[2020-11-01] MEDS ORDERED: OMEP40CA45 PO (22:22)
[2020-11-01 22:30] VITALS: BP 181/74
[2020-11-01] MEDS ORDERED: PANTOPRAZOLE 40 MG TABLET.DR. PO ONE (23:00)
== END 2020-11-01 22:40 | disposition home or self-care (01) ==
LOC: ER 21:25
DX: K29.70 Gastritis, unspecified, without bleeding (principal); R10.32 Left lower quadrant pain; R11.2 Nausea with vomiting, unspecified; J45.909 Unspecified asthma, uncomplicated; F12.90 Cannabis use, unspecified, uncomplicated
CPT/HCPCS: 99283

== ENCOUNTER 2020-12-04 17:10 | Emergency (ER) | payer OTHER ==
[~2020-12-04] VITALS: Ht 195.6 cm; Wt 75.7 kg
[~2020-12-04 17:10] MED LIST changes: +OMEP40CA45 PO; +SUCR1TAB35 PO
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
[2020-12-04] MEDS ORDERED: ALBU2.5V8 IH (18:02)
[2020-12-04 18:05] VITALS: BP 167/86
== END 2020-12-04 18:05 | disposition home or self-care (01) ==
LOC: ER 17:10
DX: J45.901 Unspecified asthma with (acute) exacerbation (principal); R06.02 Shortness of breath; J45.909 Unspecified asthma, uncomplicated; K92.2 Gastrointestinal hemorrhage, unspecified; F12.90 Cannabis use, unspecified, uncomplicated
CPT/HCPCS: 99283

== ENCOUNTER 2021-04-20 12:43 | Emergency (ER) | payer OTHER ==
[~2021-04-20] VITALS: Ht 195.6 cm; Wt 78.7 kg
[~2021-04-20 12:43] MED LIST changes: -OMEP40CA45 PO; +OMEP40CA7 PO
[2021-04-20] MEDS ORDERED: HYDROcodone/APAP 5/325MG 1 TAB TABLET PO ONE (13:15)
[2021-04-20] MEDS ORDERED: IBUPROFEN 200 MG TABLET. PO ONE (13:15)
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
[2021-04-20 14:43] VITALS: BP 143/67
== END 2021-04-20 14:43 | disposition home or self-care (01) ==
LOC: ER 12:43
DX: S16.1XXA Strain of muscle, fascia and tendon at neck level, initial encounter (principal); M54.5 Low back pain; J45.909 Unspecified asthma, uncomplicated; F17.200 Nicotine dependence, unspecified, uncomplicated; V49.59XA Passenger injured in collision with other motor vehicles in traffic accident, initial encounter; Y93.89 Activity, other specified; Y92.488 Other paved roadways as the place of occurrence of the external cause; Y99.8 Other external cause status
CPT/HCPCS: 72131; 99284-25